=== PATIENT | female | born 1990 | race American Indian/Alaskan Native ===

== ENCOUNTER 2017-03-12 19:41 | Outpatient (CLI) | payer MEDICAID, OTHER ==
[2017-03-12] MEDS ORDERED: LACTATED RINGERS 1,000 ML IV ONE (19:47)
[2017-03-12 20:00] VITALS: BP 108/70
[2017-03-12 20:20] LABS: Bacteria,Urine 1+ /HPF (Negative); Bilirubin,Urine NEG (Negative); Blood,Urine NEG (Negative); Ketones,Urine NEG (Negative); Leukocyte Esterase,Urine SM (Negative); Mucus,Urine 2+ /HPF; Nitrite,Urine NEG (Negative); Urobilinogen,Urine < 2.0 mg/dL (<2.0)
== END 2017-03-12 21:04 | disposition home or self-care (01) ==
LOC: TRG 19:41
PROVIDERS: ATTEND Obstetrics & Gynecology
DX: O42.92 Full-term premature rupture of membranes, unspecified as to length of time between rupture and onset of labor (principal); Z3A.22 22 weeks gestation of pregnancy
CPT/HCPCS: 81001

== ENCOUNTER 2017-06-26 14:16 | Outpatient (CLI) | payer MEDICAID, OTHER | END 2017-06-26 15:30 | disposition home or self-care (01) | LOC: TRG 14:16 | PROVIDERS: ATTEND Obstetrics & Gynecology | DX: O47.1 False labor at or after 37 completed weeks of gestation (principal); Z3A.37 37 weeks gestation of pregnancy | CPT/HCPCS: 59025 ==

== ENCOUNTER 2017-07-31 15:45 | Emergency (ER) | payer MEDICAID ==
[2017-07-31 19:12] LABS: Basophils # (Auto) 0.1 K/mm3 (0.0-0.1); Basophils % (Auto) 0.8 % (0.0-1.8); Eosinophils # (Auto) 0.3 K/mm3 (0.0-0.4); Eosinophils % (Auto) 3.6 % (0.0-4.3); Hematocrit 39.6 % (30.3-42.9); Lymphocytes # (Auto) 1.5 K/mm3 (1.2-5.4); Lymphocytes % (Auto) 18.4 % (13.4-35.0); Mean Corpuscular HGB Conc 33 % (30-34); Mean Corpuscular Volume 76 fl (79-97); Monocytes # (Auto) 0.6 K/mm3 (0.0-0.8); Monocytes % (Auto) 7.3 % (0.0-7.3); Platelet Count 315 K/mm3 (140-440); Red Blood Count 5.23 M/mm3 (3.65-5.03); Red Cell Distribution Width 16.9 % (13.2-15.2)
[2017-07-31 19:22] LABS: Mean Corpuscular Hemoglobin 25 pg (28-32)
[2017-07-31 19:23] LABS: BUN/Creatinine Ratio 17; Blood Urea Nitrogen 15 mg/dL (7-17); Calcium 8.2 mg/dL (8.4-10.2); Hemolysis Index 0
[2017-07-31 21:13] LABS: Bilirubin,Urine NEG (Negative); Blood,Urine LG (Negative); Color,Urine Yellow (Yellow); Mucus,Urine 1+ /HPF; Nitrite,Urine NEG (Negative)
[2017-07-31] MEDS ORDERED: MACROBID PO ONE (21:27)
--- NOTE | 2017-07-31 21:29 | Emergency Department Report ---
HPI - General Chief Complaint: High BP Time Seen by Provider: 07/31/17 20:40 - HPI HPI: This is a 26-year-old female presents to the emergency department with the complaint of some swollen ankles and/or legs and been going on for the past 8 or 9 days, just after she gave via vaginal delivery at [facility] 9 days ago. She had a venous Doppler done at [facility] about 1 week ago that was negative for any DVT. She also says that she developed this generalized headache today and earlier felt like she was going to pass out but did not. She has some mild shortness of breath but denies any cough, fever, chest pain, back pain, nausea, vomiting or diaphoresis. She's been taking some IV Profen and Tylenol 3 since the delivery. She saw her ELECTRIC MULE OPERATOR today, Dr. Arleth Solitario, and had a urinalysis done and was told to go to the emergency department at [facility] to rule out preeclampsia. However the patient did not want to "fight the traffic" and came here to be seen. She otherwise denies any past medical history. She denies any tobacco or illicit drug use or abuse. ED Past Medical Hx - Past Medical History Previous Medical History?: Yes Hx Hypertension: No Hx Diabetes: No Hx Deep Vein Thrombosis: No Hx Renal Disease: No Hx Sickle Cell Disease: No Hx Seizures: No Hx Asthma: No Hx HIV: No Additional medical history: Vaginal delivery 07-22-2017 - Surgical History Past Surgical History?: No - Social History Smoking Status: Never Smoker Substance Use Type: Prescribed - Medications Home Medications: Home Medications Medication Instructions Recorded Confirmed Last Taken Type Acetaminophen/Codeine [Tylenol 1 tab PO DAILY 07/31/17 07/31/17 2 Days Ago History /Codeine # 3 tab] ~07/29/17 Ibuprofen [Motrin] 800 mg PO Q8HR PRN 07/31/17 07/31/17 07/31/17 History Nitrofurantoin Monohyd/M-Cryst 100 mg PO BID #14 capsule 08/01/17 Unknown Rx [Macrobid 100 mg Capsule] ED Review of Systems ROS: Stated complaint: HTN GAVE 9 DAYS AGO Other details as noted in HPI Comment: All other systems reviewed and negative Constitutional: denies: chills, fever Eyes: denies: eye pain, eye discharge, vision change ENT: denies: ear pain, throat pain Respiratory: shortness of breath. denies: cough Cardiovascular: edema. denies: chest pain Gastrointestinal: denies: abdominal pain, nausea, diarrhea Genitourinary: denies: urgency, dysuria, discharge Musculoskeletal: denies: back pain, joint swelling, arthralgia Skin: denies: rash, lesions Neurological: headache. denies: numbness, paresthesias Physical Exam - Physical Exam Vital Signs: Vital Signs 07/31/17 07/31/17 07/31/17 15:51 20:20 20:25 Temperature 98.8 F 98.8 F Pulse Rate 73 72 Respiratory 18 14 18 Rate Blood Pressure 121/80 Blood Pressure 152/88 [Right] O2 Sat by Pulse 98 100 100 Oximetry Physical Exam: GENERAL: The patient is well-developed well-nourished. HENT: Normocephalic. Atraumatic. Patient has moist mucous membranes. EYES: Extraocular motions are intact. Pupils equal reactive to light bilaterally. No nystagmus. NECK: Supple. Trachea is midline. CHEST/LUNGS: Clear to auscultation. There is no respiratory distress noted. HEART/CARDIOVASCULAR: Regular. There is no tachycardia. There is no murmur. ABDOMEN: Abdomen is soft, nontender. Patient has normal bowel sounds. There is no abdominal distention. SKIN: Skin is warm and dry. There is some mild nonpitting swelling to the bilateral ankles. NEURO: The patient is awake, alert, and oriented. The patient is cooperative. The patient has no focal neurologic deficits. The patient has normal speech. Cranial nerves II through XII grossly intact. MUSCULOSKELETAL: There is no tenderness or deformity. There is no limitation range of motion. There is no evidence of acute injury. ED Course Vital Signs 07/31/17 07/31/17 07/31/17 15:51 20:20 20:25 Temperature 98.8 F 98.8 F Pulse Rate 73 72 Respiratory 18 14 18 Rate Blood Pressure 121/80 Blood Pressure 152/88 [Right] O2 Sat by Pulse 98 100 100 Oximetry - Consultations Consultation #1: I spoke to the patient's ELECTRIC MULE OPERATOR, Dr. Arleth Solitario, who listened to the patient's presentation here and ED course this far including labs and imaging and has agreed to follow up with the patient in her office and agrees that she sound safe for discharge home as it sounds less likely she is having preeclampsia at this moment. 08/01/17 02:40 ED Medical Decision Making - Lab Data Result diagrams: 07/31/17 18:39 07/31/17 18:39 - EKG Data -: EKG Interpreted by Me EKG shows normal: sinus rhythm, axis, intervals, QRS complexes, ST-T waves Rate: normal - EKG Data When compared to previous EKG there are: previous EKG unavailable Interpretation: normal EKG - Radiology Data Radiology results: report reviewed, image reviewed interpreted by me: Chest x-ray does not show any acute process. There are no pleural effusions, obvious pneumonia and there is no pneumothorax. EXAM: NM LUNG SCAN PERF/VENT HISTORY: SOB, elevated dimer COMPARISON: None available. TECHNIQUE: 15 millicurie xenon 133 given for the ventilation portion of the exam. 5 millicuries technetium 99 m MAA given for the for fusion portion of the exam. FINDINGS: Relatively homogeneous uptake of tracer in both the ventilation and perfusion portions of the exam. No mismatched defect. IMPRESSION: Very low probability exam for pulmonary embolus. Transcribed By: LMA Dictated By: NELSON MCKENNA MD Electronically Authenticated By: NELSON MCKENNA MD Signed Date/Time: 07/31/172152 PROCEDURE: CT HEAD/BRAIN WO CON TECHNIQUE: Computerized tomography of the head was performed without contrast material. HISTORY: Headache, COMPARISON: No prior studies are available for comparison. FINDINGS: Skull and scalp: Normal. Paranasal sinuses: Normal. Ventricles and subarachnoid spaces: Normal. Cerebrum: No evidence of hemorrhage, acute infarction or mass . Cerebellum and brainstem: No evidence of hemorrhage, acute infarction or mass. Vasculature: Normal. Comments: None. IMPRESSION: Normal Examination Transcribed By: [facility] Dictated By: SHARON BRANTLEY Electronically Authenticated By: SHARON BRANTLEY Signed Date/Time: 07/31/17 1819 - Medical Decision Making This patient presents to the emergency department with a complaint of a headache , some dizziness and/or near syncope, some elevated blood pressure issues and swelling around the ankles, all about 9 days status post vaginal delivery. The patient does not appear to have any focal, motor or sensory deficits in her cranial nerves are intact. CT of the head did not show any bleed, shift, mass or any acute process. The patient's blood pressure was about 120/80 when she first arrived and then goes up to about 146/90 and then back down. She was given some Toradol and a Percocet for her headache with some improvement. EKG is normal without ST elevation ME, ischemia or dysrhythmia. Labs are mostly unremarkable including negative troponins 2. Patient does have a mild UTI. She also has a very elevated d-dimer but she had a VQ scan done that shows very low probability for pulmonary embolism. She was reevaluated multiple times over multiple hours and is feeling better. I spoke to her ELECTRIC MULE OPERATOR who felt that based on her vitals, labs and workup thus far, that she appears safe for discharge home and does not need to be started on any blood pressure medication at this moment. The patient will try lifestyle and/or dietary changes first including cutting out the caffeinated drinks and decreasing her salt intake and has been encouraged to keep a blood pressure log. She will return to the emergency Department with any worsening of her symptoms or any acute distress. Otherwise she has been encouraged to follow up with her ELECTRIC MULE OPERATOR in the next few days. She understands and agrees to the plan. - Differential Diagnosis essential hypertension, preeclampsia, dysrhythmia, PE, ME Critical Care Time: No Critical care attestation.: If time is entered above; I have spent that time in minutes in the direct care of this critically ill patient, excluding procedure time. ED Disposition Clinical Impression: Near syncope, Swollen ankles, Elevated blood pressure reading UTI (urinary tract infection) Qualifiers: Urinary tract infection type: acute cystitis Hematuria presence: with hematuria Qualified Code(s): N30.01 - Acute cystitis with hematuria Disposition: - TO HOME OR SELFCARE Is pt being admited?: No Condition: Stable Instructions: Urinary Tract Infection in Women (ED), Leg Edema (ED), Near Syncope (ED) Additional Instructions: Please follow-up with your ELECTRIC MULE OPERATOR in the next few days. Go to the closest emergency department with any worsening of your symptoms or any acute distress. Try and stay away from caffeinated products and foods that are high in salt to try and help with your blood pressure. Keep a blood pressure log. Prescriptions: Nitrofurantoin Monohyd/M-Cryst [Macrobid 100 mg Capsule] 100 mg PO BID #14 capsule Time of Disposition: 02:34
--- NOTE | 2017-07-31 22:22 | Cat Scan Report ---
FINAL REPORT PROCEDURE: CT HEAD/BRAIN WO CON TECHNIQUE: Computerized tomography of the head was performed without contrast material. HISTORY: Headache, COMPARISON: No prior studies are available for comparison. FINDINGS: Skull and scalp: Normal. Paranasal sinuses: Normal. Ventricles and subarachnoid spaces: Normal. Cerebrum: No evidence of hemorrhage, acute infarction or mass . Cerebellum and brainstem: No evidence of hemorrhage, acute infarction or mass. Vasculature: Normal. Comments: None. IMPRESSION: Normal Examination
[2017-07-31] MEDS ORDERED: PERCOCET 5/325 PO ONE (22:49)
[2017-08-01] MEDS ORDERED: TORADOL IV ONE (01:30)
[2017-08-01] MEDS ORDERED: NORCO 5/325 PO ONE (01:30)
--- NOTE | 2017-08-01 01:56 | Nuclear Medicine Report ---
FINAL REPORT EXAM: NM LUNG SCAN PERF/VENT HISTORY: SOB, elevated dimer COMPARISON: None available. TECHNIQUE: 15 millicurie xenon 133 given for the ventilation portion of the exam. 5 millicuries technetium 99 m MAA given for the for fusion portion of the exam. FINDINGS: Relatively homogeneous uptake of tracer in both the ventilation and perfusion portions of the exam. No mismatched defect. IMPRESSION: Very low probability exam for pulmonary embolus.
[2017-08-01 03:27] VITALS: BP 131/94
--- NOTE | 2017-08-01 07:51 | XRay Report ---
FINAL REPORT EXAM: XR CHEST ROUTINE 2V HISTORY: sob TECHNIQUE: PA and lateral chest radiographs PRIORS: None. FINDINGS: No mediastinal shift. Cardiac silhouette is not enlarged. No pneumothorax or effusion. Ill-defined left lower lung opacity. No acute skeletal finding. IMPRESSION: Ill-defined left lower lung opacity. PA and lateral chest radiographic follow-up to resolution is recommended.
== END 2017-08-01 03:38 | disposition home or self-care (01) ==
LOC: ED 15:45
DX: R55 Syncope and collapse (principal); N30.01 Acute cystitis with hematuria; R60.0 Localized edema
CPT/HCPCS: 36415; 70450; 71046; 78582; 80048; 81001; 84484; 85025; 85379; 93005; 93010; 96374; 99284; A9540; A9558; J1885

== ENCOUNTER 2018-10-04 15:54 | Emergency (ER) | payer MEDICAID, OTHER ==
--- NOTE | 2018-10-04 16:26 | Emergency Department Report ---
Blank Doc - Documentation Documentation: This is a 27-year-old female that presents wiht URI symptoms. This initial assessment/diagnostic orders/clinical plan/treatment(s) is/are subject to change based on patient's health status, clinical progression and re- assessment by fellow clinical providers in the ED. Further treatment and workup at subsequent clinical providers discretion. Patient/guardians urged not to elope from the ED as their condition may be serious if not clinically assessed and managed. Initial orders include: 1- Patient sent to [facility] for further evaluation and treatment 2- CXR
[2018-10-04 16:29] VITALS: BP 133/87
--- NOTE | 2018-10-04 17:54 | XRay Report ---
PROCEDURE: XR CHEST ROUTINE 2V TECHNIQUE: Chest 2 views HISTORY: cough COMPARISONS: FINDINGS: Cardiac and mediastinal contours are unremarkable. No focal pulmonary infiltrate identified. No pleur al fluid collection seen. Pulmonary vasculature is unremarkable. IMPRESSION: Negative two-view chest. This document is electronically signed by Av Hernandez MD., October 04 2018 05:52:49 PM ET
[2018-10-04] MEDS ORDERED: DELTASONE PO ONE (19:53)
[2018-10-04] MEDS ORDERED: PROVENTIL IH ONE (19:53)
[2018-10-04] MEDS ORDERED: IBUPROFEN PO ONE (19:53)
--- NOTE | 2018-10-04 21:17 | Emergency Department Report ---
Upper Respiratory HPI - HPI Chief Complaint: Chest Pain Stated Complaint: CHEST PAIN/WHEEZING/RUNNY NOSE Time Seen by Provider: 10/04/18 16:26 Duration: 5 Days URI Symptoms: Rhinorrhea: Yes, Sore Throat: Yes, Ear Pain: Yes, Cough: Yes, Shortness of Breath: Yes, Sick Contacts: Yes, Unable to Take Fluids: No, Urine Output Abnormal: No, Listless Behavior: No - Home Meds and Allergies Home Medications: Home Medications Medication Instructions Recorded Confirmed Last Taken Acetaminophen/Codeine [Tylenol 1 tab PO DAILY 07/31/17 07/31/17 2 Days Ago /Codeine # 3 tab] ~07/29/17 Ibuprofen [Motrin] 800 mg PO Q8HR PRN 07/31/17 07/31/17 07/31/17 Previous Rx's Medication Instructions Recorded Last Taken Type Nitrofurantoin Monohyd/M-Cryst 100 mg PO BID #14 capsule 08/01/17 Unknown Rx [Macrobid 100 mg Capsule] ALBUTEROL Inhaler(NF) [VENTOLIN 2 puff IH Q4H PRN #1 inha 10/04/18 Unknown Rx Inhaler(NF)] Azithromycin [Zithromax Z-HETAL] 250 mg PO DAILY #6 tab 10/04/18 Unknown Rx Benzonatate [Tessalon Perle] 100 mg PO TID PRN #30 capsule 10/04/18 Unknown Rx Ibuprofen 800 mg PO TID PRN #30 tablet 10/04/18 Unknown Rx predniSONE [Deltasone] 40 mg PO QDAY 5 Days #10 tab 10/04/18 Unknown Rx Allergies/Adverse Reactions: Allergies Allergy/AdvReac Type Severity Reaction Status Date / Time No Known Allergies Allergy Verified 10/04/18 16:27 ED Review of Systems ROS: Stated complaint: CHEST PAIN/WHEEZING/RUNNY NOSE Other details as noted in HPI Constitutional: chills, fever Eyes: denies: eye pain, eye discharge, vision change ENT: ear pain, throat pain, congestion Respiratory: cough, shortness of breath, wheezing Cardiovascular: denies: chest pain (right lateral chest wall pain with cough only ), palpitations Endocrine: no symptoms reported Gastrointestinal: denies: abdominal pain, nausea, diarrhea Genitourinary: denies: urgency, dysuria, discharge Musculoskeletal: denies: back pain, joint swelling, arthralgia Skin: denies: rash, lesions Neurological: denies: headache, weakness, paresthesias Psychiatric: denies: anxiety, depression Hematological/Lymphatic: denies: easy bleeding, easy bruising ED Past Medical Hx - Past Medical History Hx Hypertension: No Hx Diabetes: No Hx Deep Vein Thrombosis: No Hx Renal Disease: No Hx Sickle Cell Disease: No Hx Seizures: No Hx Asthma: No Hx HIV: No Additional medical history: Vaginal delivery 07-22-2017 - Social History Smoking Status: Never Smoker Substance Use Type: Alcohol, Marijuana - Medications Home Medications: Home Medications Medication Instructions Recorded Confirmed Last Taken Type Acetaminophen/Codeine [Tylenol 1 tab PO DAILY 07/31/17 07/31/17 2 Days Ago History /Codeine # 3 tab] ~07/29/17 Ibuprofen [Motrin] 800 mg PO Q8HR PRN 07/31/17 07/31/17 07/31/17 History Nitrofurantoin Monohyd/M-Cryst 100 mg PO BID #14 capsule 08/01/17 Unknown Rx [Macrobid 100 mg Capsule] ALBUTEROL Inhaler(NF) [VENTOLIN 2 puff IH Q4H PRN #1 inha 10/04/18 Unknown Rx Inhaler(NF)] Azithromycin [Zithromax Z-HETAL] 250 mg PO DAILY #6 tab 10/04/18 Unknown Rx Benzonatate [Tessalon Perle] 100 mg PO TID PRN #30 capsule 10/04/18 Unknown Rx Ibuprofen 800 mg PO TID PRN #30 tablet 10/04/18 Unknown Rx predniSONE [Deltasone] 40 mg PO QDAY 5 Days #10 tab 10/04/18 Unknown Rx ED Bronchiolitis Physical Exam - Exam General: Vital signs noted. No distress. Alert and acting appropriately. HEENT: Yes Pharyngeal Erythema, Yes Rhinorrhea, No Conjuctival Injection, No Dry Mucous Membranes Ear: Neither TM Bulge, Neither TM Erythema, Neither EAC Discharge Neck: No Adenopathy, No Rigidity Lungs: Yes Good Air Exchange, Yes Wheezes, Yes Cough, No Clear Lung Sounds, No Stridor, No Nasal Flaring, No Retractions, No Use of Accessory Muscles Heart: Yes Regular, No Murmur Abdomen: Yes Normal Bowel Sounds, No Tenderness, No Peritoneal Signs Skin: No Rash, No Eczema Neurologic: Alert and oriented, no deficits. Musculoskeletal: Unremarkable. ED Bronchiolitis Tests - Testing Testing: CXR: Normal/Negative, Rapid Strep: Abnormal/Positive Treatments - Treaments Treatment: Improved Albuterol (prednisone ibuprofen.) ED Physical Exam - General Limitations: No Limitations General appearance: alert, in no apparent distress - Head Head exam: Present: atraumatic, normocephalic - Eye Eye exam: Present: normal appearance, PERRL, EOMI Pupils: Present: normal accommodation - ENT ENT exam: Present: normal orophraynx, mucous membranes moist. Absent: TM's normal bilaterally, normal external ear exam - Neck Neck exam: Present: normal inspection, full ROM. Absent: tenderness, meningismus, lymphadenopathy, thyromegaly - Expanded Neck Exam Expanded Neck exam: Absent: tenderness - Respiratory Respiratory exam: Present: normal lung sounds bilaterally, chest wall tenderness (right lateral chest wall pain with cough no step off no crepitus ). Absent: respiratory distress, wheezes, stridor - Cardiovascular Cardiovascular Exam: Present: regular rate, normal rhythm, normal heart sounds. Absent: systolic murmur, diastolic murmur, rubs, gallop - GI/Abdominal GI/Abdominal exam: Present: soft, normal bowel sounds. Absent: distended, tenderness, bruit, hernia - Rectal Rectal exam: Present: deferred - Extremities Exam Extremities exam: Present: normal inspection, full ROM, normal capillary refill - Back Exam Back exam: Present: normal inspection, full ROM. Absent: tenderness, CVA tenderness (R), CVA tenderness (L), muscle spasm, rash noted - Neurological Exam Neurological exam: Present: alert, oriented X3, CN II-XII intact, normal gait - Psychiatric Psychiatric exam: Present: normal affect, normal mood - Skin Skin exam: Present: warm, dry, intact, normal color. Absent: rash ED Course Vital Signs 10/04/18 16:27 Temperature 98.1 F Pulse Rate 87 Respiratory 18 Rate Blood Pressure 133/87 O2 Sat by Pulse 98 Oximetry ED Medical Decision Making - Radiology Data Radiology results: report reviewed, image reviewed Patient: BERNABE WEINSTEIN MR#: [id number] : 1990 Acct:[id number] Age/Sex: 27 / F ADM Date: 10/04/18 Loc: ED Attending Dr: Ordering Physician: TAYLOR SALMON NP Date of Service: 10/04/18 Procedure(s): XR chest routine 2V Accession Number(s): [id number] cc: TAYLOR SALMON NP Fluoro Time In Minutes: PROCEDURE: XR CHEST ROUTINE 2V TECHNIQUE: Chest 2 views HISTORY: cough COMPARISONS: FINDINGS: Cardiac and mediastinal contours are unremarkable. No focal pulmonary infiltrate identified. No pleural fluid collection seen. Pulmonary vasculature is unremarkable. IMPRESSION: Negative two-view chest. This document is electronically signed by Av Middleton MD., October 04 2018 05:52:49 PM ET Transcribed By: JESSICA Dictated By: ROBER MIDDLETON MD Electronically Authenticated By: ROBER MIDDLETON MD Signed Date/Time: 10/04/181753 DD/ 28 TD/TT: 10/04/181728 - Medical Decision Making Symptoms are much improved with medications given in the emergency plan will DC home with prescription for albuterol inhaler prednisone ZPack ibuprofen and Tessalon Perles patient will follow with PCP patient will return to emergency department should symptoms worsen patient is currently alert and oriented ambulatory in ed without increased sob. Critical care attestation.: If time is entered above; I have spent that time in minutes in the direct care of this critically ill patient, excluding procedure time. ED Disposition Clinical Impression: Bronchitis Disposition: DC-01 TO HOME OR SELFCARE Is pt being admited?: No Does the pt Need Aspirin: No Condition: Stable Instructions: Acute Bronchitis (ED), Upper Respiratory Infection (ED) Prescriptions: predniSONE [Deltasone] 40 mg PO QDAY 5 Days #10 tab Ibuprofen 800 mg PO TID PRN #30 tablet PRN Reason: pain fever Benzonatate [Tessalon Perle] 100 mg PO TID PRN #30 capsule PRN Reason: Cough ALBUTEROL Inhaler(NF) [VENTOLIN Inhaler(NF)] 2 puff IH Q4H PRN #1 inha PRN Reason: shortness of breath wheezing Azithromycin [Zithromax Z-HETAL] 250 mg PO DAILY #6 tab Referrals: [facility] [Outside] - 3-5 Days Forms: Work/School Release Form(ED) Time of Disposition: 21:25
== END 2018-10-04 21:30 | disposition home or self-care (01) ==
LOC: ED 15:54
DX: J40 Bronchitis, not specified as acute or chronic (principal); F12.10 Cannabis abuse, uncomplicated
CPT/HCPCS: 71046; 99283; J7512; 94640

== ENCOUNTER 2018-12-05 12:30 | Emergency (ER) | payer SELFPAY ==
[2018-12-05 12:39] VITALS: BP 140/95
[2018-12-05] MEDS ORDERED: DUONEB *Not for PRN Use IH ONE (12:39)
[2018-12-05] MEDS ORDERED: DELTASONE PO STA (12:39)
--- NOTE | 2018-12-05 12:47 | Emergency Department Report ---
- General Chief Complaint: Upper Respiratory Infection Stated Complaint: CONGESTED Time Seen by Provider: 12/05/18 12:39 Source: patient Mode of arrival: Ambulatory Limitations: No Limitations - History of Present Illness Initial Comments: 27 Y/O FEMALE SMOKER WITH PMH OF BRONCHITIS RPESENTS TO ED C/O OF 2 DAY HISTORY OF COUGH AND CONGESTION. SCANT MUCUS. NO HEMOPTYSIS. NO PALPITATIONS NO DIZZINESS MD Complaint: cough, rhinorrhea, nasal congestion, other -: Gradual Quality: burning, dull Consistency: constant Improves With: nothing Associated Symptoms: chills, rhinorrhea, nasal congestion, cough. denies: diaphoresis, headache, abdominal pain, vomiting, diarrhea, dysuria, right sweats, ear pain - Related Data Home Medications Medication Instructions Recorded Confirmed Last Taken Acetaminophen/Codeine [Tylenol 1 tab PO DAILY 07/31/17 07/31/17 2 Days Ago /Codeine # 3 tab] ~07/29/17 Ibuprofen [Motrin] 800 mg PO Q8HR PRN 07/31/17 07/31/17 07/31/17 Previous Rx's Medication Instructions Recorded Last Taken Type Nitrofurantoin Monohyd/M-Cryst 100 mg PO BID #14 capsule 08/01/17 Unknown Rx [Macrobid 100 mg Capsule] ALBUTEROL Inhaler(NF) [VENTOLIN 2 puff IH Q4H PRN #1 inha 10/04/18 Unknown Rx Inhaler(NF)] Azithromycin [Zithromax Z-HETAL] 250 mg PO DAILY #6 tab 10/04/18 Unknown Rx Benzonatate [Tessalon Perle] 100 mg PO TID PRN #30 capsule 10/04/18 Unknown Rx Ibuprofen [Ibuprofen 800] 800 mg PO TID PRN #30 tablet 10/04/18 Unknown Rx predniSONE [Deltasone] 40 mg PO QDAY 5 Days #10 tab 10/04/18 Unknown Rx Azithromycin [Zithromax] 500 mg PO QDAY #3 tablet 12/05/18 Unknown Rx Montelukast [Singulair] 10 mg PO QPM #14 tablet 12/05/18 Unknown Rx predniSONE [Deltasone] 50 mg PO QDAY #5 tab 12/05/18 Unknown Rx Allergies Allergy/AdvReac Type Severity Reaction Status Date / Time No Known Allergies Allergy Verified 12/05/18 12:34 ED Review of Systems ROS: Stated complaint: CONGESTED Other details as noted in HPI Constitutional: denies: chills, fever Eyes: denies: eye pain, eye discharge, vision change ENT: denies: ear pain, throat pain Respiratory: cough. denies: shortness of breath, wheezing Cardiovascular: denies: chest pain, palpitations Endocrine: no symptoms reported Gastrointestinal: denies: abdominal pain, nausea, diarrhea Genitourinary: denies: urgency, dysuria, discharge Musculoskeletal: denies: back pain, joint swelling, arthralgia Skin: denies: rash, lesions Neurological: denies: headache, weakness, paresthesias Psychiatric: denies: anxiety, depression Hematological/Lymphatic: denies: easy bleeding, easy bruising ED Past Medical Hx - Past Medical History Previous Medical History?: No Hx Hypertension: No Hx Diabetes: No Hx Deep Vein Thrombosis: No Hx Renal Disease: No Hx Sickle Cell Disease: No Hx Seizures: No Hx Asthma: No Hx HIV: No Additional medical history: Vaginal delivery 07-22-2017 - Surgical History Past Surgical History?: No - Social History Smoking Status: Former Smoker Substance Use Type: None - Medications Home Medications: Home Medications Medication Instructions Recorded Confirmed Last Taken Type Acetaminophen/Codeine [Tylenol 1 tab PO DAILY 07/31/17 07/31/17 2 Days Ago History /Codeine # 3 tab] ~07/29/17 Ibuprofen [Motrin] 800 mg PO Q8HR PRN 07/31/17 07/31/17 07/31/17 History Nitrofurantoin Monohyd/M-Cryst 100 mg PO BID #14 capsule 08/01/17 Unknown Rx [Macrobid 100 mg Capsule] ALBUTEROL Inhaler(NF) [VENTOLIN 2 puff IH Q4H PRN #1 inha 10/04/18 Unknown Rx Inhaler(NF)] Azithromycin [Zithromax Z-HETAL] 250 mg PO DAILY #6 tab 10/04/18 Unknown Rx Benzonatate [Tessalon Perle] 100 mg PO TID PRN #30 capsule 10/04/18 Unknown Rx Ibuprofen [Ibuprofen 800] 800 mg PO TID PRN #30 tablet 10/04/18 Unknown Rx predniSONE [Deltasone] 40 mg PO QDAY 5 Days #10 tab 10/04/18 Unknown Rx Azithromycin [Zithromax] 500 mg PO QDAY #3 tablet 12/05/18 Unknown Rx Montelukast [Singulair] 10 mg PO QPM #14 tablet 12/05/18 Unknown Rx predniSONE [Deltasone] 50 mg PO QDAY #5 tab 12/05/18 Unknown Rx ED Physical Exam - General Limitations: No Limitations General appearance: alert, in no apparent distress - Head Head exam: Present: atraumatic, normocephalic - Eye Eye exam: Present: normal appearance - ENT ENT exam: Present: mucous membranes moist - Neck Neck exam: Present: normal inspection - Respiratory Respiratory exam: Present: normal lung sounds bilaterally, wheezes, rhonchi, other (spo2 97%). Absent: respiratory distress - Cardiovascular Cardiovascular Exam: Present: regular rate, normal rhythm. Absent: systolic murmur, diastolic murmur, rubs, gallop - GI/Abdominal GI/Abdominal exam: Present: soft, normal bowel sounds. Absent: tenderness, guarding - Extremities Exam Extremities exam: Present: normal inspection - Back Exam Back exam: Present: normal inspection - Neurological Exam Neurological exam: Present: alert, oriented X3 - Psychiatric Psychiatric exam: Present: normal affect, normal mood - Skin Skin exam: Present: warm, dry, intact, normal color. Absent: rash ED Course Vital Signs 12/05/18 12:36 Temperature 98 F Pulse Rate 94 H Respiratory 16 Rate Blood Pressure 140/95 [Left] O2 Sat by Pulse 94 Oximetry Critical care attestation.: If time is entered above; I have spent that time in minutes in the direct care of this critically ill patient, excluding procedure time. ED Disposition Clinical Impression: Cough, Bronchitis Disposition: DC-01 TO HOME OR SELFCARE Is pt being admited?: No Does the pt Need Aspirin: No Condition: Stable Instructions: Chronic Bronchitis (ED) Referrals: [facility] [Provider Group] - 3-5 Days
== END 2018-12-05 13:07 | disposition home or self-care (01) ==
LOC: ED 12:30
DX: J40 Bronchitis, not specified as acute or chronic (principal)
CPT/HCPCS: 94640; 99282

== ENCOUNTER 2019-06-13 17:18 | Emergency (ER) | payer SELFPAY ==
--- NOTE | 2019-06-13 17:28 | Event Note ---
ED Screening Note Date of service: 06/13/19 Time: 17:25 ED Screening Note: 28 y/o female comes in for n/v cough chest discomfort with cough. No fever. Times 3 days. Took theraflu, benadryl, prednisone. This initial assessment/diagnostic orders/clinical plan/treatment(s) is/are subject to change based on patients health status, clinical progression and re- assessment by fellow clinical providers in the ED. Further treatment and workup at subsequent clinical providers discretion. Patient/guardian urged not to elope from the ED as their condition may be serious if not clinically assessed and managed. Initial orders include:
--- NOTE | 2019-06-13 17:55 | XRay Report ---
CHEST PA AND LATERAL VIEWS INDICATION: sob,chest discomfort and tachy. COMPARISON: 10/04/2018. FINDINGS: Support devices: None. Heart: Within normal limits. Lungs/Pleura: No acute pulmonary or pleural findings. IMPRESSION: 1. No significant abnormality. Signer Name: Aung Mack MD Signed: 06/13/2019 5:50 PM Workstation Name: [id number]
[2019-06-13 18:13] LABS: Hematocrit 43.9 % (30.3-42.9); Hemoglobin 14.7 gm/dl (10.1-14.3); Mean Corpuscular HGB Conc 34 % (30-34); Mean Corpuscular Volume 76 fl (79-97); Platelet Count 310 K/mm3 (140-440); Red Blood Count 5.77 M/mm3 (3.65-5.03); Red Cell Distribution Width 15.4 % (13.2-15.2)
[2019-06-13 18:33] LABS: BUN/Creatinine Ratio 20; Blood Urea Nitrogen 14 mg/dL (7-17); Calcium 9.5 mg/dL (8.4-10.2); Hemolysis Index 19
[2019-06-13] MEDS ORDERED: ONDANSETRON 4 MG/2 ML INJ IV ONE (18:36)
[2019-06-13] MEDS ORDERED: ASPIRIN 325 MG TAB PO ONE (18:36)
[2019-06-13] MEDS ORDERED: FAMOTIDINE 20 MG/2 ML INJ IV ONE (18:36)
[2019-06-13] MEDS ORDERED: SODIUM CHLORIDE 0.9% 1000 ML 1,000 ML IV ONE (18:36)
[2019-06-13 18:58] LABS: Basophils % (Manual) 0 % (0.0-1.8); Eosinophils % (Manual) 0 % (0.0-4.3); Total Cells Counted 100
[2019-06-13 18:59] LABS: Anisocytosis 1+
[2019-06-13] MEDS ORDERED: LORazepam 1 MG TAB PO ONE (19:26)
[2019-06-13 19:28] LABS: Alanine Aminotransferase 13 units/L (7-56); Albumin 4.2 g/dL (3.9-5); BUN/Creatinine Ratio 23; Blood Urea Nitrogen 14 mg/dL (7-17); Calcium 8.8 mg/dL (8.4-10.2); Hemolysis Index 0
--- NOTE | 2019-06-13 22:03 | Emergency Department Report ---
- General Chief Complaint: Upper Respiratory Infection Stated Complaint: SORE THROAT Time Seen by Provider: 06/13/19 17:24 Source: patient Mode of arrival: Ambulatory Limitations: No Limitations - History of Present Illness Initial Comments: Patient is a 28-year-old -[place] female with a history of chronic bronchitis and anxiety who presented to the ED with complaint of acute onset persistent nasal and sinus congestion, frontal sinus pressure and headache, diffuse body aches and pain, cough with pleuritic chest wall pain for the last 2 days. Patient denies fever, chills, dizziness, syncope, shortness of breath, change in vision, abdominal pain, nausea, vomiting, diarrhea, dysuria, urinary frequency and urgency, sore throat or change in vision. MD Complaint: cough, sore throat, rhinorrhea, nasal congestion, sinus pain -: Sudden, days(s) (2) Severity scale (0 -10): 7 Quality: sharp, aching Consistency: constant Improves With: nothing Worsens With: nothing Context: sick contacts Associated Symptoms: denies other symptoms, fever, chills, myalgias, headache, rhinorrhea, nasal congestion, cough. denies: diaphoresis, stiff neck, chest pain, shortness of breath, abdominal pain, nausea, vomiting, diarrhea, dysuria, rash, right sweats, weight loss, epistaxis, ear pain - Related Data Home Medications Medication Instructions Recorded Confirmed Last Taken Acetaminophen/Codeine [Tylenol 1 tab PO DAILY 07/31/17 07/31/17 2 Days Ago /Codeine # 3 tab] ~07/29/17 Ibuprofen [Motrin] 800 mg PO Q8HR PRN 07/31/17 07/31/17 07/31/17 Previous Rx's Medication Instructions Recorded Last Taken Type Nitrofurantoin Monohyd/M-Cryst 100 mg PO BID #14 capsule 08/01/17 Unknown Rx [Macrobid 100 mg Capsule] ALBUTEROL Inhaler(NF) [VENTOLIN 2 puff IH Q4H PRN #1 inha 10/04/18 Unknown Rx Inhaler(NF)] Azithromycin [Zithromax Z-HETAL] 250 mg PO DAILY #6 tab 10/04/18 Unknown Rx Benzonatate [Tessalon Perle] 100 mg PO TID PRN #30 capsule 10/04/18 Unknown Rx Ibuprofen [Ibuprofen 800] 800 mg PO TID PRN #30 tablet 10/04/18 Unknown Rx predniSONE [Deltasone] 40 mg PO QDAY 5 Days #10 tab 10/04/18 Unknown Rx Azithromycin [Zithromax] 500 mg PO QDAY #3 tablet 12/05/18 Unknown Rx Montelukast [Singulair] 10 mg PO QPM #14 tablet 12/05/18 Unknown Rx predniSONE [Deltasone] 50 mg PO QDAY #5 tab 12/05/18 Unknown Rx Benzonatate [Tessalon Perles] 100 mg PO Q8HR #30 capsule 06/13/19 Unknown Rx DOXYCYCLINE Hyclate [Vibramycin 100 mg PO Q12HR #20 capsule 06/13/19 Unknown Rx CAP] Ibuprofen [Motrin] 600 mg PO Q8H PRN #20 tablet 06/13/19 Unknown Rx methylPREDNISolone [Medrol 4MG 4 mg PO DAILY #21 tab.ds.pk 06/13/19 Unknown Rx DOSEPAK (21 tabs)] Allergies Allergy/AdvReac Type Severity Reaction Status Date / Time No Known Allergies Allergy Verified 06/13/19 17:18 ED Review of Systems ROS: Stated complaint: SORE THROAT Other details as noted in HPI Constitutional: denies: chills, fever Eyes: denies: eye pain, eye discharge, vision change ENT: congestion. denies: ear pain, throat pain Respiratory: cough. denies: shortness of breath, wheezing Cardiovascular: denies: chest pain, palpitations Endocrine: no symptoms reported. denies: excessive sweating, flushing Gastrointestinal: denies: abdominal pain, nausea, diarrhea Genitourinary: denies: urgency, dysuria, discharge Musculoskeletal: back pain, arthralgia, myalgia. denies: joint swelling Skin: denies: rash, lesions Neurological: headache. denies: weakness, paresthesias Psychiatric: denies: anxiety, depression Hematological/Lymphatic: denies: easy bleeding, easy bruising ED Past Medical Hx - Past Medical History Hx Hypertension: No Hx Diabetes: No Hx Deep Vein Thrombosis: No Hx Renal Disease: No Hx Sickle Cell Disease: No Hx Seizures: No Hx Asthma: No Hx HIV: No Additional medical history: Vaginal delivery 07-22-2017 - Surgical History Past Surgical History?: No - Social History Smoking Status: Current Every Day Smoker Substance Use Type: Marijuana - Medications Home Medications: Home Medications Medication Instructions Recorded Confirmed Last Taken Type Acetaminophen/Codeine [Tylenol 1 tab PO DAILY 07/31/17 07/31/17 2 Days Ago History /Codeine # 3 tab] ~07/29/17 Ibuprofen [Motrin] 800 mg PO Q8HR PRN 07/31/17 07/31/17 07/31/17 History Nitrofurantoin Monohyd/M-Cryst 100 mg PO BID #14 capsule 08/01/17 Unknown Rx [Macrobid 100 mg Capsule] ALBUTEROL Inhaler(NF) [VENTOLIN 2 puff IH Q4H PRN #1 inha 10/04/18 Unknown Rx Inhaler(NF)] Azithromycin [Zithromax Z-HETAL] 250 mg PO DAILY #6 tab 10/04/18 Unknown Rx Benzonatate [Tessalon Perle] 100 mg PO TID PRN #30 capsule 10/04/18 Unknown Rx Ibuprofen [Ibuprofen 800] 800 mg PO TID PRN #30 tablet 10/04/18 Unknown Rx predniSONE [Deltasone] 40 mg PO QDAY 5 Days #10 tab 10/04/18 Unknown Rx Azithromycin [Zithromax] 500 mg PO QDAY #3 tablet 12/05/18 Unknown Rx Montelukast [Singulair] 10 mg PO QPM #14 tablet 12/05/18 Unknown Rx predniSONE [Deltasone] 50 mg PO QDAY #5 tab 12/05/18 Unknown Rx Benzonatate [Tessalon Perles] 100 mg PO Q8HR #30 capsule 06/13/19 Unknown Rx DOXYCYCLINE Hyclate [Vibramycin 100 mg PO Q12HR #20 capsule 06/13/19 Unknown Rx CAP] Ibuprofen [Motrin] 600 mg PO Q8H PRN #20 tablet 06/13/19 Unknown Rx methylPREDNISolone [Medrol 4MG 4 mg PO DAILY #21 tab.ds.pk 06/13/19 Unknown Rx DOSEPAK (21 tabs)] ED Physical Exam - General Limitations: No Limitations General appearance: alert, in no apparent distress - Head Head exam: Present: atraumatic, normocephalic, normal inspection - Eye Eye exam: Present: normal appearance, PERRL, EOMI Pupils: Present: normal accommodation - ENT ENT exam: Present: normal exam, normal orophraynx, mucous membranes moist, TM's normal bilaterally, other (Grossly congested nasal passages) - Neck Neck exam: Present: normal inspection, full ROM - Respiratory Respiratory exam: Present: normal lung sounds bilaterally. Absent: respiratory distress, wheezes, rales, stridor, chest wall tenderness, accessory muscle use, decreased breath sounds, prolonged expiratory - Cardiovascular Cardiovascular Exam: Present: normal rhythm, tachycardia, normal heart sounds. Absent: systolic murmur, diastolic murmur, rubs, gallop - GI/Abdominal GI/Abdominal exam: Present: soft, normal bowel sounds. Absent: tenderness, guarding, hyperactive bowel sounds, hypoactive bowel sounds, organomegaly - Extremities Exam Extremities exam: Present: normal inspection, full ROM, normal capillary refill - Back Exam Back exam: Present: normal inspection, full ROM - Neurological Exam Neurological exam: Present: alert, oriented X3, CN II-XII intact, normal gait - Psychiatric Psychiatric exam: Present: normal affect, normal mood, anxious - Skin Skin exam: Present: warm, dry, intact, normal color. Absent: rash ED Course Vital Signs 06/13/19 06/13/19 06/13/19 17:24 18:35 22:05 Temperature 98.3 F 98.5 F Pulse Rate 136 H 106 H Respiratory 20 17 18 Rate Blood Pressure 135/87 Blood Pressure 110/67 [Right] O2 Sat by Pulse 97 96 Oximetry ED Medical Decision Making - Lab Data Result diagrams: 06/13/19 18:02 06/13/19 18:55 - EKG Data EKG shows normal: sinus rhythm Rate: tachycardia - EKG Data 06/13/19 22:59 EKG shows sinus tachycardia with ventricular rate of 114 beats per minute, no ST or T-wave abnormalities. - Radiology Data Radiology results: report reviewed, image reviewed Findings [address] [address] XRay Report Signed Patient: BERNABE WEINSTEIN MR#: [id number] : 1990 Acct:[id number] Age/Sex: 28 / F ADM Date: 06/13/19 Loc: ED Attending Dr: Ordering Physician: FIDEL GRAY Date of Service: 06/13/19 Procedure(s): XR chest routine 2V Accession Number(s): [id number] cc: [facility] M[facility] [place], [place] Fluoro Time In Minutes: CHEST PA AND LATERAL VIEWS INDICATION: sob,chest discomfort and tachy. COMPARISON: 10/04/2018. FINDINGS: Support devices: None. Heart: Within normal limits. Lungs/Pleura: No acute pulmonary or pleural findings. IMPRESSION: 1. No significant abnormality. Signer Name: Aung Mack MD Signed: 06/13/2019 5:50 PM Workstation Name: [id number] Transcribed By: SW Dictated By: Aung Mack MD Electronically Authenticated By: Aung Mack MD Signed Date/Time: 06/13/191749 DD/ 48 TD/TT: - Medical Decision Making This is a 28-year-old [place] female with a history of chronic bronchitis and anxiety who presented to the ED with nasal and sinus congestion, dry cough, diffuse body aches and pains, pleuritic chest pain for 2 days worse in the last 12 hours. In the ED, patient is alert and oriented 3 and is not in distress but extremely anxious. Physical exam, tachycardic in triage. EKG shows sinus tachycardia with a ventricular rate of 114 beats per minute and no ST or T-wave abnormalities. Lab test results were reviewed and are nonactionable including urinalysis. Chest x-ray shows no acute cardiopulmonary abnormalities or pneumonitis. Patient was treated in the ED with Pepcid, antiemetics Zofran, also received normal saline 1 L IV bolus and also received Ativan 0.5 mg by mouth 1. On reevaluation, patient's tachycardia improved significantly, patient felt betteron her body aches and pains also resolved. Patient was discharged home on medications and advised to follow-up with her primary care physician in 5-7 days for reevaluation or return to the ED immediately if symptoms get worse. - Differential Diagnosis Acute bronchitis; URI; Pneumonia; Flu; Anxiety Critical care attestation.: If time is entered above; I have spent that time in minutes in the direct care of this critically ill patient, excluding procedure time. ED Disposition Clinical Impression: Acute upper respiratory infection, Flu-like symptoms, Anxiety as acute reaction to exceptional stress Acute bronchitis Qualifiers: Bronchitis organism: unspecified organism Qualified Code(s): J20.9 - Acute bronchitis, unspecified Disposition: DC-01 TO HOME OR SELFCARE Is pt being admited?: No Does the pt Need Aspirin: No Condition: Stable Instructions: Upper Respiratory Infection (ED), Acute Bronchitis (ED) Additional Instructions: Take medication with food, drink plenty of fluids and follow-up with your primary care physician in 5-7 days for reevaluation. Return to the ED immediately if symptoms get worse. Prescriptions: methylPREDNISolone [Medrol 4MG DOSEPAK (21 tabs)] 4 mg PO DAILY #21 tab.ds.pk Ibuprofen [Motrin] 600 mg PO Q8H PRN #20 tablet PRN Reason: Pain Benzonatate [Tessalon Perles] 100 mg PO Q8HR #30 capsule DOXYCYCLINE Hyclate [Vibramycin CAP] 100 mg PO Q12HR #20 capsule Referrals: BRET EVERETT MD [Staff Physician] - 3-5 Days Forms: Work/School Release Form(ED) Time of Disposition: 22:53 Print Language: [place]
[2019-06-13 22:06] VITALS: BP 110/67
[2019-06-13 22:35] LABS: Bilirubin,Urine NEG (Negative); Blood,Urine NEG (Negative); Color,Urine Yellow (Yellow); Mucus,Urine 3+ /HPF
== END 2019-06-13 23:29 | disposition home or self-care (01) ==
LOC: ED 17:18
DX: J06.9 Acute upper respiratory infection, unspecified (principal); F41.9 Anxiety disorder, unspecified; J20.9 Acute bronchitis, unspecified; F17.200 Nicotine dependence, unspecified, uncomplicated; F12.10 Cannabis abuse, uncomplicated; Z79.899 Other long term (current) drug therapy
CPT/HCPCS: 36415; 71046; 80048; 80053; 81001; 83690; 84484; 84703; 85007; 85025; 85379; 93005; 93010; 96374; 96375; 99284; J2405; J7030

== ENCOUNTER 2019-12-14 22:59 | Emergency (ER) | payer SELFPAY ==
[2019-12-14] MEDS ORDERED: ALBUTEROL 2.5 MG/3 ML NEBU IH ONE ×2 (23:38→23:42)
[2019-12-14] MEDS ORDERED: IPRATROPIUM 0.02% NEBU 2.5 ML IH ONE (23:38)
[2019-12-14] MEDS ORDERED: methylPREDNISolone Sod Succinate 125 MG/2 ML INJ IV ONE (23:42)
[2019-12-14] MEDS ORDERED: methylPREDNISolone Sod Succinate 125 MG/2 ML INJ ONE (23:44)
--- NOTE | 2019-12-15 00:15 | XRay Report ---
CHEST 1 VIEW 12/14/2019 10:56 PM INDICATION / CLINICAL INFORMATION: dyspnea, asthma attack. COMPARISON: Chest x-ray 06/13/2019 FINDINGS: SUPPORT DEVICES: None. HEART / MEDIASTINUM: No significant abnormality. LUNGS / PLEURA: No significant pulmonary or pleural abnormality. No pneumothorax. ADDITIONAL FINDINGS: No significant additional findings. IMPRESSION: 1. No acute findings. Signer Name: Jefferson Hankins MD Signed: 12/15/2019 12:11 AM Workstation Name: [id number]
--- NOTE | 2019-12-15 01:29 | Emergency Department Report ---
ED Shortness of Breath HPI - General Chief Complaint: Adult Asthma Stated Complaint: ASTHMA Source: patient Mode of arrival: Ambulatory Limitations: No Limitations - History of Present Illness Initial Comments: Patient is a 28-year-old -Polish female with a history of asthma and bronchitis who presents to the ED with complaint of acute onset persistent shortness of breath, persistent dry cough, and wheezing for the last 2 hours. Patient states that the symptoms have been persistent intermittently for the last 3 days and that she has been using her albuterol inhaler and nebulizers at home. Patient states that the last time she used her nebulizer was about 8 hours ago. Patient states that she ran out of her albuterol inhaler prior to arrival in the ED. Patient denies chest pain, dizziness, syncope, fever, chills, nausea, vomiting, diarrhea, nasal and sinus congestion or sore throat and headache. MD Complaint: shortness of breath, cough, "asthma attack" -: Sudden, hour(s) (2) Radiation: other (none) Severity: moderate Pain Scale: 4 Quality: dull Consistency: intermittent Improves With: bronchodilators Worsens With: nothing Known History Of: asthma, other (bronchitis) Context: recent URI Associated Symptoms: cough Treatments Prior to Arrival: bronchodilator - Related Data Home Oxygen Therapy: No Home Medications Medication Instructions Recorded Confirmed Last Taken Acetaminophen/Codeine [Tylenol 1 tab PO DAILY 07/31/17 07/31/17 2 Days Ago /Codeine # 3 tab] ~07/29/17 Ibuprofen [Motrin] 800 mg PO Q8HR PRN 07/31/17 07/31/17 07/31/17 Previous Rx's Medication Instructions Recorded Last Taken Type Nitrofurantoin Monohyd/M-Cryst 100 mg PO BID #14 capsule 08/01/17 Unknown Rx [Macrobid 100 mg Capsule] ALBUTEROL Inhaler(NF) [VENTOLIN 2 puff IH Q4H PRN #1 inha 10/04/18 Unknown Rx Inhaler(NF)] Azithromycin [Zithromax Z-HETAL] 250 mg PO DAILY #6 tab 10/04/18 Unknown Rx Benzonatate [Tessalon Perle] 100 mg PO TID PRN #30 capsule 10/04/18 Unknown Rx Ibuprofen [Ibuprofen 800] 800 mg PO TID PRN #30 tablet 10/04/18 Unknown Rx predniSONE [Deltasone] 40 mg PO QDAY 5 Days #10 tab 10/04/18 Unknown Rx Azithromycin [Zithromax] 500 mg PO QDAY #3 tablet 12/05/18 Unknown Rx Montelukast [Singulair] 10 mg PO QPM #14 tablet 12/05/18 Unknown Rx predniSONE [Deltasone] 50 mg PO QDAY #5 tab 12/05/18 Unknown Rx DOXYCYCLINE Hyclate [Vibramycin 100 mg PO Q12HR #20 capsule 06/13/19 Unknown Rx CAP] Ibuprofen [Motrin] 600 mg PO Q8H PRN #20 tablet 06/13/19 Unknown Rx Ondansetron [Zofran Odt] 4 mg PO Q6HR PRN #20 tab.rapdis 06/13/19 Unknown Rx methylPREDNISolone [Medrol 4MG 4 mg PO DAILY #21 tab.ds.pk 06/13/19 Unknown Rx DOSEPAK (21 tabs)] ALBUTEROL NEB's [Proventil 0.083% 3 ml INHALATION Q6H PRN #75 ml 12/15/19 Unknown Rx NEBS] Albuterol Sulfate [Proventil Hfa] 1 - 2 puff IH Q6H PRN #1 hfa.aer.ad 12/15/19 Unknown Rx Benzonatate [Tessalon Perles] 100 mg PO Q8HR #30 capsule 12/15/19 Unknown Rx Prednisone [predniSONE 10 mg 10 mg PO .TAPER #21 tab.ds.pk 12/15/19 Unknown Rx (6-Day Pack, 21 Tabs)] Allergies Allergy/AdvReac Type Severity Reaction Status Date / Time No Known Allergies Allergy Verified 06/13/19 17:18 ED Review of Systems ROS: Stated complaint: ASTHMA Other details as noted in HPI Constitutional: denies: chills, fever Eyes: denies: eye pain, eye discharge, vision change ENT: denies: ear pain, throat pain Respiratory: cough, shortness of breath, wheezing Cardiovascular: denies: chest pain, palpitations Endocrine: no symptoms reported Gastrointestinal: denies: abdominal pain, nausea, diarrhea Genitourinary: denies: urgency, dysuria, discharge Musculoskeletal: denies: back pain, joint swelling, arthralgia Skin: denies: rash, lesions Neurological: denies: headache, weakness, paresthesias Psychiatric: denies: anxiety, depression Hematological/Lymphatic: denies: easy bleeding, easy bruising ED Past Medical Hx - Past Medical History Previous Medical History?: Yes Hx Hypertension: No Hx Diabetes: No Hx Deep Vein Thrombosis: No Hx Renal Disease: No Hx Sickle Cell Disease: No Hx Seizures: No Hx Asthma: Yes Hx HIV: No Additional medical history: bronchitis - Surgical History Past Surgical History?: Yes - Social History Smoking Status: Never Smoker Substance Use Type: Marijuana - Medications Home Medications: Home Medications Medication Instructions Recorded Confirmed Last Taken Type Acetaminophen/Codeine [Tylenol 1 tab PO DAILY 07/31/17 07/31/17 2 Days Ago History /Codeine # 3 tab] ~07/29/17 Ibuprofen [Motrin] 800 mg PO Q8HR PRN 07/31/17 07/31/17 07/31/17 History Nitrofurantoin Monohyd/M-Cryst 100 mg PO BID #14 capsule 08/01/17 Unknown Rx [Macrobid 100 mg Capsule] ALBUTEROL Inhaler(NF) [VENTOLIN 2 puff IH Q4H PRN #1 inha 10/04/18 Unknown Rx Inhaler(NF)] Azithromycin [Zithromax Z-HETAL] 250 mg PO DAILY #6 tab 10/04/18 Unknown Rx Benzonatate [Tessalon Perle] 100 mg PO TID PRN #30 capsule 10/04/18 Unknown Rx Ibuprofen [Ibuprofen 800] 800 mg PO TID PRN #30 tablet 10/04/18 Unknown Rx predniSONE [Deltasone] 40 mg PO QDAY 5 Days #10 tab 10/04/18 Unknown Rx Azithromycin [Zithromax] 500 mg PO QDAY #3 tablet 12/05/18 Unknown Rx Montelukast [Singulair] 10 mg PO QPM #14 tablet 12/05/18 Unknown Rx predniSONE [Deltasone] 50 mg PO QDAY #5 tab 12/05/18 Unknown Rx DOXYCYCLINE Hyclate [Vibramycin 100 mg PO Q12HR #20 capsule 06/13/19 Unknown Rx CAP] Ibuprofen [Motrin] 600 mg PO Q8H PRN #20 tablet 06/13/19 Unknown Rx Ondansetron [Zofran Odt] 4 mg PO Q6HR PRN #20 tab.rapdis 06/13/19 Unknown Rx methylPREDNISolone [Medrol 4MG 4 mg PO DAILY #21 tab.ds.pk 06/13/19 Unknown Rx DOSEPAK (21 tabs)] ALBUTEROL NEB's [Proventil 0.083% 3 ml INHALATION Q6H PRN #75 ml 12/15/19 Unknown Rx NEBS] Albuterol Sulfate [Proventil Hfa] 1 - 2 puff IH Q6H PRN #1 hfa.aer.ad 12/15/19 Unknown Rx Benzonatate [Tessalon Perles] 100 mg PO Q8HR #30 capsule 12/15/19 Unknown Rx Prednisone [predniSONE 10 mg 10 mg PO .TAPER #21 tab.ds.pk 12/15/19 Unknown Rx (6-Day Pack, 21 Tabs)] ED Physical Exam - General Limitations: No Limitations General appearance: alert, in no apparent distress - Head Head exam: Present: atraumatic, normocephalic, normal inspection - Eye Eye exam: Present: normal appearance, PERRL, EOMI Pupils: Present: normal accommodation - ENT ENT exam: Present: normal exam, normal orophraynx, mucous membranes moist, TM's normal bilaterally, normal external ear exam - Neck Neck exam: Present: normal inspection, full ROM - Respiratory Respiratory exam: Present: wheezes (Diffuse coarse wheezes throughout). Absent: respiratory distress, rales, rhonchi, chest wall tenderness, accessory muscle use, decreased breath sounds - Cardiovascular Cardiovascular Exam: Present: normal rhythm, tachycardia, normal heart sounds. Absent: systolic murmur, diastolic murmur, rubs, gallop - GI/Abdominal GI/Abdominal exam: Present: soft, normal bowel sounds. Absent: tenderness, guarding, hyperactive bowel sounds, hypoactive bowel sounds - Extremities Exam Extremities exam: Present: normal inspection, full ROM, normal capillary refill - Back Exam Back exam: Present: normal inspection, full ROM. Absent: tenderness, CVA tenderness (R), CVA tenderness (L), muscle spasm, paraspinal tenderness, vertebral tenderness - Neurological Exam Neurological exam: Present: alert, oriented X3, CN II-XII intact, normal gait, reflexes normal - Psychiatric Psychiatric exam: Present: normal affect, normal mood - Skin Skin exam: Present: warm, dry, intact, normal color. Absent: rash ED Course Vital Signs 12/14/19 12/14/19 12/15/19 23:13 23:49 01:55 Temperature 98.4 F 97.8 F Pulse Rate 103 H 103 H Pulse Rate [ 105 H Bilateral] Respiratory 18 15 Rate Respiratory 22 Rate [Bilateral ] Blood Pressure 130/88 Blood Pressure 132/81 [Left] O2 Sat by Pulse 96 99 Oximetry ED Medical Decision Making - Radiology Data Radiology results: report reviewed, image reviewed Findings [facility], [place] [address] [place] [address] XRay Report Signed Patient: BERNABE WEINSTEIN MR#: [id number] : 1990 Acct:[id number] Age/Sex: 28 / F ADM Date: 12/14/19 Loc: ED Attending Dr: Ordering Physician: FIDEL ALVARADO Date of Service: 12/14/19 Procedure(s): XR chest 1V ap Accession Number(s): [id number] cc: FIDEL ALVARADO Fluoro Time In Minutes: CHEST 1 VIEW 12/14/2019 10:56 PM INDICATION / CLINICAL INFORMATION: dyspnea, asthma attack. COMPARISON: Chest x-ray 06/13/2019 FINDINGS: SUPPORT DEVICES: None. HEART / MEDIASTINUM: No significant abnormality. LUNGS / PLEURA: No significant pulmonary or pleural abnormality. No pneumothorax. ADDITIONAL FINDINGS: No significant additional findings. IMPRESSION: 1. No acute findings. Signer Name: Jefferson Hankins MD Signed: 12/15/2019 12:11 AM Workstation Name: [id number] Transcribed By: TL Dictated By: Jefferson Hankins MD Electronically Authenticated By: Jefferson Hankins MD Signed Date/Time: 12/15/1910 DD/ TD/TT: - Medical Decision Making This is a 28-year-old -Polish female with a history of asthma and bronchitis who presents to the ED with complaint of acute onset persistent shortness of breath, persistent dry cough, and wheezing for the last 2 hours. Patient states that the symptoms have been persistent intermittently for the last 3 days and that she has been using her albuterol inhaler and nebulizers at home. Patient states that the last time she used her nebulizer was about 8 hours ago. Patient states that she ran out of her albuterol inhaler prior to arrival in the ED. In the ED, patient is alert and oriented x3 and is not in distress. Patient was treated in the ED with Solu-Medrol 125 mg IV, albuterol and DuoNeb over 1 hour. Chest x-ray shows no acute cardiopulmonary abnormalities or pneumonitis. On reevaluation, patient's wheezing resolved with treatment. Patient was discharged home on medications including refill on her albuterol inhaler and nebulizers and cough medications and swelling steroid Dosepak. Patient was advised to follow-up with her primary care physician in 3 to 5 days for reevaluation. Patient was advised return to the ED immediately if symptoms get worse. - Differential Diagnosis Pneumonia; asthma; bronchitis; URI; Allergic rhinitis Critical care attestation.: If time is entered above; I have spent that time in minutes in the direct care of this critically ill patient, excluding procedure time. ED Disposition Clinical Impression: Acute bronchitis with asthma with acute exacerbation, Shortness of breath Disposition: TO HOME OR SELFCARE Is pt being admited?: No Does the pt Need Aspirin: No Condition: Stable Instructions: Asthma (ED), Acute Bronchitis (ED), Dyspnea (ED) Additional Instructions: Chest x-ray shows no acute cardiopulmonary abnormalities or pneumonitis. Therefore take medication as advised, drink plenty of fluids and follow-up with your primary care physician in 3 to 5 days for reevaluation. Return to the ED immediately if symptoms get worse. Prescriptions: Prednisone [predniSONE 10 mg (6-Day Pack, 21 Tabs)] 10 mg PO .TAPER #21 tab.ds.pk ALBUTEROL NEB's [Proventil 0.083% NEBS] 3 ml INHALATION Q6H PRN #75 ml PRN Reason: Wheezing Albuterol Sulfate [Proventil Hfa] 1 - 2 puff IH Q6H PRN #1 hfa.aer.ad PRN Reason: Wheezing Benzonatate [Tessalon Perles] 100 mg PO Q8HR #30 capsule Referrals: [facility] [Provider Group] - 3-5 Days [facility] [Outside] - 3-5 Days Time of Disposition: :26 Print Language: TELUGU
[2019-12-15 02:13] VITALS: BP 132/81
== END 2019-12-15 02:00 | disposition home or self-care (01) ==
LOC: ED 22:59
DX: J44.1 Chronic obstructive pulmonary disease with (acute) exacerbation (principal)
CPT/HCPCS: 71045; 94644; 96374; 99283; J2930

== ENCOUNTER 2020-05-09 19:51 | Emergency (ER) | payer SELFPAY ==
[2020-05-09] MEDS ORDERED: IPRATROPIUM/ALBUTEROL SULFATE 3 ML AMPUL.NEB IH ONE ×2 (21:15)
[2020-05-09] MEDS ORDERED: IPRATROPIUM 0.02% NEBU 2.5 ML IH ONE ×3 (21:20→22:56)
[2020-05-09] MEDS ORDERED: ALBUTEROL 2.5 MG/3 ML NEBU IH ONE ×3 (21:20→22:56)
--- NOTE | 2020-05-09 21:34 | XRay Report ---
CHEST 1 VIEW INDICATION / CLINICAL INFORMATION: cough and wheezing. COMPARISON: Chest radiograph 12/14/2019 FINDINGS: SUPPORT DEVICES: None. HEART / MEDIASTINUM: No significant abnormality. LUNGS / PLEURA: No significant pulmonary or pleural abnormality. No pneumothorax. ADDITIONAL FINDINGS: No significant additional findings. IMPRESSION: 1. No acute findings. Signer Name: Marisol Braxton MD Signed: 05/09/2020 9:30 PM Workstation Name: [id number]
[2020-05-09] MEDS ORDERED: dexAMETHasone 20 MG/5 ML VIAL IV ONE (21:39)
--- NOTE | 2020-05-09 21:56 | Emergency Department Report ---
ED Asthma HPI - General Chief Complaint: Adult Asthma Stated Complaint: TARAS/COUGH Time Seen by Provider: 05/09/20 21:22 Source: patient Mode of arrival: Ambulatory Limitations: No Limitations - History of Present Illness Initial Comments: Chief complaint: "I think I am having a flareup." HPI: This is a 29-year-old female with history of asthma since childhood who presents with wheezing shortness of breath for 1 day. Unknown trigger. She has intact she requires albuterol daily. However she visits to the ED approximately every 6 months. She does not have a PCP. She has never been hospitalized for asthma. She has nonproductive cough. She has shortness of breath and wheezing. She denies chest pain, fever, abdominal pain. She lives with 3 children. No sick contacts. MD Complaint: "asthma attack", shortness of breath, wheezing -: Gradual, days(s) (1) Asthma History: childhood onset, history of frequent attac, history of prior ED visit Severity: moderate Context: none known Associated Symptoms: dry cough Treatments Prior to Arrival: inhaled bronchodilator - Related Data Home Medications Medication Instructions Recorded Confirmed Last Taken Acetaminophen/Codeine [Tylenol 1 tab PO DAILY 07/31/17 07/31/17 2 Days Ago /Codeine # 3 tab] ~07/29/17 Ibuprofen [Motrin] 800 mg PO Q8HR PRN 07/31/17 07/31/17 07/31/17 Previous Rx's Medication Instructions Recorded Last Taken Type Nitrofurantoin Monohyd/M-Cryst 100 mg PO BID #14 capsule 08/01/17 Unknown Rx [Macrobid 100 mg Capsule] ALBUTEROL Inhaler(NF) [VENTOLIN 2 puff IH Q4H PRN #1 inha 10/04/18 Unknown Rx Inhaler(NF)] Azithromycin [Zithromax Z-HETAL] 250 mg PO DAILY #6 tab 10/04/18 Unknown Rx Benzonatate [Tessalon Perle] 100 mg PO TID PRN #30 capsule 10/04/18 Unknown Rx Ibuprofen [Ibuprofen 800] 800 mg PO TID PRN #30 tablet 10/04/18 Unknown Rx predniSONE [Deltasone] 40 mg PO QDAY 5 Days #10 tab 10/04/18 Unknown Rx Azithromycin [Zithromax] 500 mg PO QDAY #3 tablet 06/05/19 Unknown Rx Montelukast [Singulair] 10 mg PO QPM #14 tablet 12/05/18 Unknown Rx predniSONE [Deltasone] 50 mg PO QDAY #5 tab 12/05/18 Unknown Rx DOXYCYCLINE Hyclate [Vibramycin 100 mg PO Q12HR #20 capsule 06/13/19 Unknown Rx CAP] Ibuprofen [Motrin] 600 mg PO Q8H PRN #20 tablet 06/13/19 Unknown Rx Ondansetron [Zofran Odt] 4 mg PO Q6HR PRN #20 tab.rapdis 06/13/19 Unknown Rx methylPREDNISolone [Medrol 4MG 4 mg PO DAILY #21 tab.ds.pk 06/13/19 Unknown Rx DOSEPAK (21 tabs)] ALBUTEROL NEB's [Proventil 0.083% 3 ml INHALATION Q6H PRN #75 ml 12/15/19 Unknown Rx NEBS] Albuterol Sulfate [Proventil Hfa] 1 - 2 puff IH Q6H PRN #1 hfa.aer.ad 12/15/19 Unknown Rx Benzonatate [Tessalon Perles] 100 mg PO Q8HR #30 capsule 12/15/19 Unknown Rx Prednisone [predniSONE 10 mg 10 mg PO .TAPER #21 tab.ds.pk 12/15/19 Unknown Rx (6-Day Pack, 21 Tabs)] ALBUTEROL NEB's [Proventil 0.083% 2.5 mg IH TID PRN #1 box 05/09/20 Unknown Rx NEBS] Albuterol Mdi (or & Nicu Only) 2 puff IH QID PRN #8.5 gram 05/09/20 Unknown Rx [ProAir HFA Inhaler] predniSONE [Deltasone] 3 tab PO QDAY 3 Days #9 tab 05/09/20 Unknown Rx Allergies Allergy/AdvReac Type Severity Reaction Status Date / Time No Known Allergies Allergy Verified 06/13/19 17:18 ED Review of Systems ROS: Stated complaint: TARAS/COUGH Other details as noted in HPI Comment: All other systems reviewed and negative Constitutional: denies: fever, malaise Respiratory: cough, shortness of breath, wheezing Cardiovascular: denies: chest pain Gastrointestinal: denies: abdominal pain Neurological: denies: headache ED Past Medical Hx - Past Medical History Previous Medical History?: Yes Hx Hypertension: No Hx Diabetes: No Hx Deep Vein Thrombosis: No Hx Renal Disease: No Hx Sickle Cell Disease: No Hx Seizures: No Hx Psychiatric Treatment: Yes (Anxiety) Hx Asthma: Yes Hx HIV: No Additional medical history: bronchitis - Surgical History Past Surgical History?: No - Social History Smoking Status: Never Smoker Substance Use Type: Marijuana - Medications Home Medications: Home Medications Medication Instructions Recorded Confirmed Last Taken Type Acetaminophen/Codeine [Tylenol 1 tab PO DAILY 07/31/17 07/31/17 2 Days Ago History /Codeine # 3 tab] ~07/29/17 Ibuprofen [Motrin] 800 mg PO Q8HR PRN 07/31/17 07/31/17 07/31/17 History Nitrofurantoin Monohyd/M-Cryst 100 mg PO BID #14 capsule 08/01/17 Unknown Rx [Macrobid 100 mg Capsule] ALBUTEROL Inhaler(NF) [VENTOLIN 2 puff IH Q4H PRN #1 inha 10/04/18 Unknown Rx Inhaler(NF)] Azithromycin [Zithromax Z-HETAL] 250 mg PO DAILY #6 tab 10/04/18 Unknown Rx Benzonatate [Tessalon Perle] 100 mg PO TID PRN #30 capsule 10/04/18 Unknown Rx Ibuprofen [Ibuprofen 800] 800 mg PO TID PRN #30 tablet 10/04/18 Unknown Rx predniSONE [Deltasone] 40 mg PO QDAY 5 Days #10 tab 10/04/18 Unknown Rx Azithromycin [Zithromax] 500 mg PO QDAY #3 tablet 12/05/18 Unknown Rx Montelukast [Singulair] 10 mg PO QPM #14 tablet 12/05/18 Unknown Rx predniSONE [Deltasone] 50 mg PO QDAY #5 tab 12/05/18 Unknown Rx DOXYCYCLINE Hyclate [Vibramycin 100 mg PO Q12HR #20 capsule 06/13/19 Unknown Rx CAP] Ibuprofen [Motrin] 600 mg PO Q8H PRN #20 tablet 06/13/19 Unknown Rx Ondansetron [Zofran Odt] 4 mg PO Q6HR PRN #20 tab.rapdis 06/13/19 Unknown Rx methylPREDNISolone [Medrol 4MG 4 mg PO DAILY #21 tab.ds.pk 06/13/19 Unknown Rx DOSEPAK (21 tabs)] ALBUTEROL NEB's [Proventil 0.083% 3 ml INHALATION Q6H PRN #75 ml 12/15/19 Unknown Rx NEBS] Albuterol Sulfate [Proventil Hfa] 1 - 2 puff IH Q6H PRN #1 hfa.aer.ad 12/15/19 Unknown Rx Benzonatate [Tessalon Perles] 100 mg PO Q8HR #30 capsule 12/15/19 Unknown Rx Prednisone [predniSONE 10 mg 10 mg PO .TAPER #21 tab.ds.pk 12/15/19 Unknown Rx (6-Day Pack, 21 Tabs)] ALBUTEROL NEB's [Proventil 0.083% 2.5 mg IH TID PRN #1 box 05/09/20 Unknown Rx NEBS] Albuterol Mdi (or & Nicu Only) 2 puff IH QID PRN #8.5 gram 05/09/20 Unknown Rx [ProAir HFA Inhaler] predniSONE [Deltasone] 3 tab PO QDAY 3 Days #9 tab 05/09/20 Unknown Rx ED Physical Exam - General Limitations: No Limitations General appearance: alert, in no apparent distress, other (Speaking full word sentences without difficulty) - Head Head exam: Present: atraumatic, normocephalic - Eye Eye exam: Present: normal appearance - ENT ENT exam: Present: mucous membranes moist - Neck Neck exam: Present: normal inspection, full ROM - Respiratory Respiratory exam: Present: wheezes, prolonged expiratory, other (Inspiratory expiratory wheezing). Absent: respiratory distress, rales, rhonchi, chest wall tenderness, accessory muscle use - Cardiovascular Cardiovascular Exam: Present: normal rhythm, tachycardia, normal heart sounds. Absent: systolic murmur, diastolic murmur, rubs, gallop - GI/Abdominal GI/Abdominal exam: Present: soft, normal bowel sounds. Absent: distended, tenderness, guarding, rebound - Extremities Exam Extremities exam: Present: normal inspection - Neurological Exam Neurological exam: Present: alert, oriented X3 - Psychiatric Psychiatric exam: Present: normal affect, normal mood - Skin Skin exam: Present: warm, dry, intact, normal color. Absent: rash ED Course Vital Signs 05/09/20 05/09/20 05/09/20 20:41 21:22 21:25 Temperature 99.3 F Pulse Rate 112 H Pulse Rate [ 111 H 115 H Bilateral Throughout] Respiratory 18 Rate Respiratory 20 20 Rate [Bilateral Throughout] Blood Pressure 116/78 O2 Sat by Pulse 97 Oximetry ED Medical Decision Making - Medical Decision Making Acute asthma exacerbation: Treated with albuterol, Atrovent, IV Decadron. Patient received 2 continuous nebulizer treatments with improvement of symptoms. She was prescribed prednisone burst therapy as well as albuterol nebulizer therapy and albuterol MDI. Critical care attestation.: If time is entered above; I have spent that time in minutes in the direct care of this critically ill patient, excluding procedure time. ED Disposition Clinical Impression: Acute asthma exacerbation Disposition: DC- TO HOME OR SELFCARE Is pt being admited?: No Does the pt Need Aspirin: No Condition: Stable Instructions: Asthma Attack Prescriptions: predniSONE [Deltasone] 3 tab PO QDAY 3 Days #9 tab Albuterol Mdi (or & Nicu Only) [ProAir HFA Inhaler] 2 puff IH QID PRN #8.5 gram PRN Reason: Shortness Of Breath ALBUTEROL NEB's [Proventil 0.083% NEBS] 2.5 mg IH TID PRN #1 box PRN Reason: Wheezing Referrals: BRET EVERETT MD [Staff Physician] - 3-5 Days
[2020-05-10 00:05] VITALS: BP 119/80
== END 2020-05-10 | disposition home or self-care (01) ==
LOC: ED 19:51
DX: J45.901 Unspecified asthma with (acute) exacerbation (principal); F41.9 Anxiety disorder, unspecified; F12.90 Cannabis use, unspecified, uncomplicated; Z79.899 Other long term (current) drug therapy
CPT/HCPCS: 71045; 94640; 96374; 99283; J1100; 94644

== ENCOUNTER 2020-06-25 21:48 | Observation (INO) | payer OTHER ==
[2020-06-25] MEDS ORDERED: ALBUTEROL 2.5 MG/3 ML NEBU IH ONE (21:53)
[2020-06-25] MEDS ORDERED: IPRATROPIUM 0.02% NEBU 2.5 ML IH ONE (21:53)
--- NOTE | 2020-06-25 21:57 | Emergency Department Report ---
ED Shortness of Breath HPI - General Stated Complaint: TARAS Time Seen by Provider: 06/25/20 21:50 - History of Present Illness Initial Comments: 29-year-old female, history of asthma, presents to ED with difficulty breathing. Patient states symptoms began yesterday and gradually worsened today. Believe her wheezing was triggered by cold weather. No relief with neb treatments at home. EMS was called. Report normal O2 sats on room air. Patient was given albuterol 5 mg nebs, magnesium sulfate 2 g IV, Solu-Medrol 125 mg IV. Patient was placed on CPAP and transported to the ED. patient denies any recent fever. She reports cough associated with her wheezing. She denies any loss of smell or taste. Patient states she had a Covid test last month and it was negative. MD Complaint: shortness of breath -: days(s) (2) Severity: severe Consistency: constant Improves With: nothing Worsens With: exertion Known History Of: asthma Associated Symptoms: denies other symptoms Treatments Prior to Arrival: bronchodilator, NIPPV - Related Data Home Oxygen Therapy: No Home Medications Medication Instructions Recorded Confirmed Last Taken Acetaminophen/Codeine [Tylenol 1 tab PO DAILY 07/31/17 07/31/17 2 Days Ago /Codeine # 3 tab] ~07/29/17 Ibuprofen [Motrin] 800 mg PO Q8HR PRN 07/31/17 07/31/17 07/31/17 Previous Rx's Medication Instructions Recorded Last Taken Type Nitrofurantoin Monohyd/M-Cryst 100 mg PO BID #14 capsule 08/01/17 Unknown Rx [Macrobid 100 mg Capsule] ALBUTEROL Inhaler(NF) [VENTOLIN 2 puff IH Q4H PRN #1 inha 10/04/18 Unknown Rx Inhaler(NF)] Azithromycin [Zithromax Z-HETAL] 250 mg PO DAILY #6 tab 10/04/18 Unknown Rx Benzonatate [Tessalon Perle] 100 mg PO TID PRN #30 capsule 10/04/18 Unknown Rx Ibuprofen [Ibuprofen 800] 800 mg PO TID PRN #30 tablet 10/04/18 Unknown Rx predniSONE [Deltasone] 40 mg PO QDAY 5 Days #10 tab 10/04/18 Unknown Rx Azithromycin [Zithromax] 500 mg PO QDAY #3 tablet 12/05/18 Unknown Rx Montelukast [Singulair] 10 mg PO QPM #14 tablet 12/05/18 Unknown Rx predniSONE [Deltasone] 50 mg PO QDAY #5 tab 12/05/18 Unknown Rx DOXYCYCLINE Hyclate [Vibramycin 100 mg PO Q12HR #20 capsule 06/13/19 Unknown Rx CAP] Ibuprofen [Motrin] 600 mg PO Q8H PRN #20 tablet 06/13/19 Unknown Rx Ondansetron [Zofran Odt] 4 mg PO Q6HR PRN #20 tab.rapdis 06/13/19 Unknown Rx methylPREDNISolone [Medrol 4MG 4 mg PO DAILY #21 tab.ds.pk 06/13/19 Unknown Rx DOSEPAK (21 tabs)] ALBUTEROL NEB's [Proventil 0.083% 3 ml INHALATION Q6H PRN #75 ml 12/15/19 Unknown Rx NEBS] Albuterol Sulfate [Proventil Hfa] 1 - 2 puff IH Q6H PRN #1 hfa.aer.ad 12/15/19 Unknown Rx Benzonatate [Tessalon Perles] 100 mg PO Q8HR #30 capsule 12/15/19 Unknown Rx Prednisone [predniSONE 10 mg 10 mg PO .TAPER #21 tab.ds.pk 12/15/19 Unknown Rx (6-Day Pack, 21 Tabs)] ALBUTEROL NEB's [Proventil 0.083% 2.5 mg IH TID PRN #1 box 05/09/20 Unknown Rx NEBS] Albuterol Mdi (or & Nicu Only) 2 puff IH QID PRN #8.5 gram 05/09/20 Unknown Rx [ProAir HFA Inhaler] predniSONE [Deltasone] 3 tab PO QDAY 3 Days #9 tab 05/09/20 Unknown Rx Allergies Allergy/AdvReac Type Severity Reaction Status Date / Time No Known Allergies Allergy Verified 06/13/19 17:18 ED Review of Systems ROS: Stated complaint: TARAS Other details as noted in HPI Comment: All other systems reviewed and negative Constitutional: denies: chills, fever Respiratory: cough, wheezing ED Past Medical Hx - Past Medical History Hx Hypertension: No Hx Diabetes: No Hx Deep Vein Thrombosis: No Hx Renal Disease: No Hx Sickle Cell Disease: No Hx Seizures: No Hx Psychiatric Treatment: Yes (Anxiety) Hx Asthma: Yes Hx HIV: No Additional medical history: bronchitis - Social History Smoking Status: Never Smoker Substance Use Type: Marijuana - Medications Home Medications: Home Medications Medication Instructions Recorded Confirmed Last Taken Type Acetaminophen/Codeine [Tylenol 1 tab PO DAILY 07/31/17 07/31/17 2 Days Ago History /Codeine # 3 tab] ~07/29/17 Ibuprofen [Motrin] 800 mg PO Q8HR PRN 07/31/17 07/31/17 07/31/17 History Nitrofurantoin Monohyd/M-Cryst 100 mg PO BID #14 capsule 08/01/17 Unknown Rx [Macrobid 100 mg Capsule] ALBUTEROL Inhaler(NF) [VENTOLIN 2 puff IH Q4H PRN #1 inha 10/04/18 Unknown Rx Inhaler(NF)] Azithromycin [Zithromax Z-HETAL] 250 mg PO DAILY #6 tab 10/04/18 Unknown Rx Benzonatate [Tessalon Perle] 100 mg PO TID PRN #30 capsule 10/04/18 Unknown Rx Ibuprofen [Ibuprofen 800] 800 mg PO TID PRN #30 tablet 10/04/18 Unknown Rx predniSONE [Deltasone] 40 mg PO QDAY 5 Days #10 tab 10/04/18 Unknown Rx Azithromycin [Zithromax] 500 mg PO QDAY #3 tablet 12/05/18 Unknown Rx Montelukast [Singulair] 10 mg PO QPM #14 tablet 12/05/18 Unknown Rx predniSONE [Deltasone] 50 mg PO QDAY #5 tab 12/05/18 Unknown Rx DOXYCYCLINE Hyclate [Vibramycin 100 mg PO Q12HR #20 capsule 06/13/19 Unknown Rx CAP] Ibuprofen [Motrin] 600 mg PO Q8H PRN #20 tablet 06/13/19 Unknown Rx Ondansetron [Zofran Odt] 4 mg PO Q6HR PRN #20 tab.rapdis 06/13/19 Unknown Rx methylPREDNISolone [Medrol 4MG 4 mg PO DAILY #21 tab.ds.pk 06/13/19 Unknown Rx DOSEPAK (21 tabs)] ALBUTEROL NEB's [Proventil 0.083% 3 ml INHALATION Q6H PRN #75 ml 12/15/19 Unknown Rx NEBS] Albuterol Sulfate [Proventil Hfa] 1 - 2 puff IH Q6H PRN #1 hfa.aer.ad 12/15/19 Unknown Rx Benzonatate [Tessalon Perles] 100 mg PO Q8HR #30 capsule 12/15/19 Unknown Rx Prednisone [predniSONE 10 mg 10 mg PO .TAPER #21 tab.ds.pk 12/15/19 Unknown Rx (6-Day Pack, 21 Tabs)] ALBUTEROL NEB's [Proventil 0.083% 2.5 mg IH TID PRN #1 box 05/09/20 Unknown Rx NEBS] Albuterol Mdi (or & Nicu Only) 2 puff IH QID PRN #8.5 gram 05/09/20 Unknown Rx [ProAir HFA Inhaler] predniSONE [Deltasone] 3 tab PO QDAY 3 Days #9 tab 05/09/20 Unknown Rx ED Physical Exam - General General appearance: alert - Head Head exam: Present: atraumatic, normocephalic - Eye Eye exam: Present: normal appearance - ENT ENT exam: Present: mucous membranes moist - Neck Neck exam: Present: normal inspection - Respiratory Respiratory exam: Present: respiratory distress, wheezes, decreased breath sounds - GI/Abdominal GI/Abdominal exam: Present: soft. Absent: distended, tenderness - Extremities Exam Extremities exam: Present: normal inspection. Absent: pedal edema, calf tenderness - Neurological Exam Neurological exam: Present: alert, oriented X3 - Psychiatric Psychiatric exam: Present: normal affect, normal mood - Skin Skin exam: Present: warm, dry, intact, normal color. Absent: rash ED Course Vital Signs 06/25/20 06/25/20 06/25/20 21:48 22:00 22:01 Temperature 98.5 F Pulse Rate 131 H Pulse Rate [ Bilateral Throughout] Respiratory 24 Rate Respiratory Rate [Bilateral Throughout] Blood Pressure 118/69 O2 Sat by Pulse 97 98 98 Oximetry 06/25/20 06/25/20 06/26/20 22:51 23:00 00:00 Temperature Pulse Rate 132 H 129 H Pulse Rate [ 138 H Bilateral Throughout] Respiratory 22 22 Rate Respiratory 20 Rate [Bilateral Throughout] Blood Pressure 114/75 110/65 O2 Sat by Pulse 98 94 Oximetry ED Medical Decision Making - Lab Data Result diagrams: 06/25/20 22:33 06/25/20 22:33 - Radiology Data Radiology results: report reviewed, image reviewed - Medical Decision Making 29-year-old female with history of asthma presents to ED with acute asthma exacerbation, initially requiring BiPAP. Patient received neb treatment, mag sulfate, Solu-Medrol from EMS. Patient received additional albuterol and Atrovent nebulizer here in the ED. Chest x-ray is negative. Labs are unremarkable. Patient given a trial off of BiPAP as she initially wanted to go home. However with ambulation, patient became dyspneic, with O2 sats dropping to 93%. Patient has decided to stay. She will be admitted for observation by Dr Hart, hospitalist, for further management. - Differential Diagnosis asthma, pneumonia, pulm edema Critical Care Time: Yes Critical care time in (mins) excluding proc time.: 35 Critical care attestation.: If time is entered above; I have spent that time in minutes in the direct care of this critically ill patient, excluding procedure time. Critical Care Time: 35 min ED Disposition Clinical Impression: Acute asthma exacerbation, Acute respiratory failure Disposition: 09 OP ADMIT IP TO THIS HOSP Is pt being admited?: Yes Condition: Stable Referrals: PRIMARY CARE, [Primary Care Provider] - 3-5 Days Time of Disposition: 00:42
[2020-06-25 22:37] LABS: ABG Base Excess -2.1 mmol/L (-2.0-3.0); ABG Methemoglobin 0.5 % (0.0-1.5); ABG Oxygen Saturation 97.5 % (95.0-99.0); ABG PCO2 40.8 mm Hg; ABG PH 7.37 pH Units (7.350-7.450); ABG PO2 100.2 mm Hg (80.0-90.0)
[2020-06-25 22:59] LABS: Basophils % (Auto) 0.4 % (0.0-1.8); Eosinophils # (Auto) 0.6 K/mm3 (0.0-0.4); Eosinophils % (Auto) 4.8 % (0.0-4.3); Hematocrit 39.5 % (30.3-42.9); Hemoglobin 12.4 gm/dl (10.1-14.3); Lymphocytes # (Auto) 1.6 K/mm3 (1.2-5.4); Lymphocytes % (Auto) 12.8 % (13.4-35.0); Mean Corpuscular HGB Conc 31 % (30-34); Mean Corpuscular Volume 77 fl (79-97); Monocytes # (Auto) 0.4 K/mm3 (0.0-0.8); Monocytes % (Auto) 3.1 % (0.0-7.3); Platelet Count 337 K/mm3 (140-440); Red Blood Count 5.13 M/mm3 (3.65-5.03); Red Cell Distribution Width 16.8 % (13.2-15.2)
[2020-06-25 23:28] LABS: Blood Urea Nitrogen 8 mg/dL (7-17); Calcium 8.9 mg/dL (8.4-10.2); Hemolysis Index 1
[2020-06-25 23:30] LABS: BUN/Creatinine Ratio 11
--- NOTE | 2020-06-26 00:03 | XRay Report ---
CHEST 1 VIEW INDICATION: sob, asthma. COMPARISON: 05/09/2020 FINDINGS: SUPPORT DEVICES: None. HEART: Within normal limits. LUNGS/PLEURA: No acute air space or interstitial disease. ADDITIONAL FINDINGS: None. IMPRESSION: 1. No acute findings. Signer Name: Aniceto Enriquez MD Signed: 06/25/2020 11:59 PM Workstation Name: [id number]
[2020-06-26] MEDS ORDERED: IBUPROFEN 800 MG TAB PO ONE (00:13)
[2020-06-26] MEDS ORDERED: ACETAMINOPHEN 325 MG TAB PO PRN (02:24)
[2020-06-26] MEDS ORDERED: ONDANSETRON 4 MG/2 ML INJ IV PRN (02:24)
[2020-06-26] MEDS ORDERED: MAGNESIUM HYDROXIDE (MOM) ORAL LIQD UDC PO PRN (02:24)
[2020-06-26] MEDS ORDERED: MORPHINE 2 MG/1 ML INJ IV PRN (02:24)
--- NOTE | 2020-06-26 02:39 | History and Physical Report ---
History of Present Illness Date of examination: 06/26/20 Date of admission: 06/26/20 00:43 Chief complaint: Shortness of Breath History of present illness: 29-year-old female with known history of asthma presenting to the emergency room today complaining of difficulty breathing and shortness of breath. Symptoms were said to have started yesterday but got worse sometime this afternoon. She has used and nebulizing treatments at home without significant improvement. She evaluated by EMS and was given albuterol nebulizing treatment, IV magnesium sulfate, and IV Solu-Medrol. She was then brought into the emergency room on CPAP. Patient denies any fever or chills, denies any chest pain, denies any nausea vomiting, no diarrhea and no abdominal pain. Denies any hematuria or dysuria. She has had some cough which is nonproductive. She denies any sick contacts and no recent travel and denies any contact with anyone with COVID-19. Patient indicates that her asthma exacerbation may have been secondary to the cold weather. She denies any exposure to any toxic fumes or chemicals. Work-up in the emergency room today including chest x-ray was unremarkable. Patient therefore admitted for asthma exacerbation. Past History Past Medical History: other (Asthma) Past Surgical History: denies: No surgical history Social history: other (Marijuana use) Family history: no significant family history Medications and Allergies Allergies Allergy/AdvReac Type Severity Reaction Status Date / Time No Known Allergies Allergy Verified 06/13/19 17:18 Home Medications Medication Instructions Recorded Confirmed Last Taken Type Acetaminophen/Codeine [Tylenol 1 tab PO DAILY 07/31/17 07/31/17 2 Days Ago History /Codeine # 3 tab] ~07/29/17 Ibuprofen [Motrin] 800 mg PO Q8HR PRN 07/31/17 07/31/17 07/31/17 History Nitrofurantoin Monohyd/M-Cryst 100 mg PO BID #14 capsule 08/01/17 Unknown Rx [Macrobid 100 mg Capsule] ALBUTEROL Inhaler(NF) [VENTOLIN 2 puff IH Q4H PRN #1 inha 10/04/18 Unknown Rx Inhaler(NF)] Azithromycin [Zithromax Z-HETAL] 250 mg PO DAILY #6 tab 10/04/18 Unknown Rx Benzonatate [Tessalon Perle] 100 mg PO TID PRN #30 capsule 10/04/18 Unknown Rx Ibuprofen [Ibuprofen 800] 800 mg PO TID PRN #30 tablet 10/04/18 Unknown Rx predniSONE [Deltasone] 40 mg PO QDAY 5 Days #10 tab 10/04/18 Unknown Rx Azithromycin [Zithromax] 500 mg PO QDAY #3 tablet 12/05/18 Unknown Rx Montelukast [Singulair] 10 mg PO QPM #14 tablet 12/05/18 Unknown Rx predniSONE [Deltasone] 50 mg PO QDAY #5 tab 12/05/18 Unknown Rx DOXYCYCLINE Hyclate [Vibramycin 100 mg PO Q12HR #20 capsule 06/13/19 Unknown Rx CAP] Ibuprofen [Motrin] 600 mg PO Q8H PRN #20 tablet 06/13/19 Unknown Rx Ondansetron [Zofran Odt] 4 mg PO Q6HR PRN #20 tab.rapdis 06/13/19 Unknown Rx methylPREDNISolone [Medrol 4MG 4 mg PO DAILY #21 tab.ds.pk 06/13/19 Unknown Rx DOSEPAK (21 tabs)] ALBUTEROL NEB's [Proventil 0.083% 3 ml INHALATION Q6H PRN #75 ml 12/15/19 Unknown Rx NEBS] Albuterol Sulfate [Proventil Hfa] 1 - 2 puff IH Q6H PRN #1 hfa.aer.ad 12/15/19 Unknown Rx Benzonatate [Tessalon Perles] 100 mg PO Q8HR #30 capsule 12/15/19 Unknown Rx Prednisone [predniSONE 10 mg 10 mg PO .TAPER #21 tab.ds.pk 12/15/19 Unknown Rx (6-Day Pack, 21 Tabs)] ALBUTEROL NEB's [Proventil 0.083% 2.5 mg IH TID PRN #1 box 05/09/20 Unknown Rx NEBS] Albuterol Mdi (or & Nicu Only) 2 puff IH QID PRN #8.5 gram 05/09/20 Unknown Rx [ProAir HFA Inhaler] predniSONE [Deltasone] 3 tab PO QDAY 3 Days #9 tab 05/09/20 Unknown Rx Active Meds: Active Medications Acetaminophen (Acetaminophen 325 Mg Tab) 650 mg PO Q4H PRN PRN Reason: Pain MILD(1-3)/Fever >100.5/SEGURA Albuterol/Ipratropium (Ipratropium/Albuterol Sulfate 3 Ml Ampul.Neb) 1 ampul IH Q6HRT JARAD Enoxaparin Sodium (Enoxaparin 40 Mg/0.4 Ml Inj) 40 mg SUB-Q QDAY@2200 JARAD; Protocol Magnesium Hydroxide (Magnesium Hydroxide (Mom) Oral Liqd Udc) 30 ml PO Q4H PRN PRN Reason: Constipation Methylprednisolone Sodium Succinate (Methylprednisolone Sod Succinate 40 Mg/1 Ml Inj) 40 mg IV Q8HR JARAD Morphine Sulfate (Morphine 2 Mg/1 Ml Inj) 2 mg IV Q4H PRN PRN Reason: Pain, Moderate (4-6) Ondansetron HCl (Ondansetron 4 Mg/2 Ml Inj) 4 mg IV Q8H PRN PRN Reason: Nausea And Vomiting Sodium Chloride (Sodium Chloride 0.9% 10 Ml Flush Syringe) 10 ml IV BID JARAD Sodium Chloride (Sodium Chloride 0.9% 10 Ml Flush Syringe) 10 ml IV PRN PRN PRN Reason: LINE FLUSH Review of Systems Constitutional: no fever, no chills Ears, nose, mouth and throat: no nasal congestion, no sore throat Cardiovascular: no chest pain, no palpitations Respiratory: shortness of breath, wheezing, no cough Gastrointestinal: no abdominal pain, no nausea, no vomiting, no diarrhea Genitourinary Female: no pelvic pain, no dysuria, no hematuria Musculoskeletal: no neck pain, no low back pain Integumentary: no rash, no pruritis Neurological: no headaches, no confusion Psychiatric: no anxiety, no depression Exam - Constitutional Vitals: Temp Pulse Resp BP Pulse Ox 98.5 F 110 H 22 110/65 97 06/25/20 21:48 06/26/20 01:00 06/26/20 00:00 06/26/20 01:01 06/26/20 01:01 General appearance: Present: no acute distress, well-nourished - EENT Eyes: Present: PERRL, EOM intact. Absent: scleral icterus ENT: hearing intact, clear oral mucosa, dentition normal - Neck Neck: Present: supple, normal ROM - Respiratory Respiratory effort: normal Respiratory: bilateral: wheezing - Cardiovascular Rhythm: regular Heart Sounds: Present: S1 & S2. Absent: gallop, systolic murmur, diastolic murmur, rub - Extremities Extremities: no ischemia, pulses intact, pulses symmetrical, No edema, normal temperature, normal color, Full ROM Peripheral Pulses: within normal limits - Abdominal General gastrointestinal: Present: soft, non-tender, non-distended, normal bowel sounds. Absent: mass - Integumentary Integumentary: Present: clear, warm, dry. Absent: rash - Musculoskeletal Musculoskeletal: strength equal bilaterally - Psychiatric Psychiatric: appropriate mood/affect, intact judgment & insight, memory intact, cooperative - Neurologic Neurologic: CNII-XII intact, no focal deficits, moves all extremities Results - Labs CBC & Chem 7: 06/25/20 22:33 06/25/20 22:33 Labs: Abnormal lab results 06/25/20 06/25/20 06/25/20 Range/Units 22:30 22:33 22:33 WBC 12.8 H (4.5-11.0) K/mm3 RBC 5.13 H (3.65-5.03) M/mm3 MCV 77 L (79-97) fl MCH 24 L (28-32) pg RDW 16.8 H (13.2-15.2) % Lymph % (Auto) 12.8 L (13.4-35.0) % Eos % (Auto) 4.8 H (0.0-4.3) % Eos # (Auto) 0.6 H (0.0-0.4) K/mm3 Seg Neutrophils % 78.9 H (40.0-70.0) % Seg Neutrophils # 10.1 H (1.8-7.7) K/mm3 ABG pO2 100.2 H (80.0-90.0) mm Hg ABG Base Excess -2.1 L (-2.0-3.0) mmol/L Glucose 173 H (65-100) mg/dL Assessment and Plan - Patient Problems (1) Acute asthma exacerbation Current Visit: Yes Status: Acute Plan to address problem: Patient placed on nebulizing treatments and IV steroids. We will keep O2 saturation greater or equal to 94%. (2) DVT prophylaxis Current Visit: Yes Status: Acute Plan to address problem: Patient placed on subcutaneous Lovenox. (3) Full code status Current Visit: Yes Status: Acute Plan to address problem: Patient is a full code.
[2020-06-26] MEDS ORDERED: methylPREDNISolone Sod Succinate 40 MG/1 ML INJ IV SCH (06:00)
[2020-06-26] MEDS ORDERED: IPRATROPIUM/ALBUTEROL SULFATE 3 ML AMPUL.NEB IH SCH (08:00)
[2020-06-26 08:34] VITALS: BP 105/64
--- NOTE | 2020-06-26 11:24 | Discharge Summary ---
Providers - Providers Date of Admission: 06/26/20 00:43 Attending physician: NASIR TRAN MD Primary care physician: AVICULTURIST Hospitalization Reason for admission: Asthma exacerbation Condition: Stable Hospital course: 29-year-old female with known history of asthma presenting to the emergency room today complaining of difficulty breathing and shortness of breath. Symptoms were said to have started yesterday but got worse sometime this afternoon. She has used and nebulizing treatments at home without significant improvement. She evaluated by EMS and was given albuterol nebulizing treatment, IV magnesium sulfate, and IV Solu-Medrol. She was then brought into the emergency room on CPAP. Patient denies any fever or chills, denies any chest pain, denies any nausea vomiting, no diarrhea and no abdominal pain. Denies any hematuria or dysuria. She has had some cough which is nonproductive. She denies any sick contacts and no recent travel and denies any contact with anyone with COVID-19. Patient indicates that her asthma exacerbation may have been secondary to the cold weather. She denies any exposure to any toxic fumes or chemicals. Work-up in the emergency room today including chest x-ray was unremarkable. Patient therefore admitted for asthma exacerbation. Since admission patient has significantly improved with good airflow very minimal wheezing ambulating without difficulty or hypoxia. She wants to be discharged and follow-up outpatient. She did run out of some of her medications. At last hospitalization did not feel other medications which have educated on importance of and she verbalized understanding. I also referred her to use good Rx for cost savings on the medications. Acute asthma exacerbation Leukocytosis likely reactive Morbid obesity weight loss counseling provided for 15 minutes. Disposition: - TO HOME OR SELFCARE Time spent for discharge: 35 minutes Core Measure Documentation - Palliative Care Palliative Care/ Comfort Measures: Not Applicable - Core Measures Any of the following diagnoses?: none Exam - Physical Exam Narrative exam: VITAL SIGNS: Reviewed. GENERAL: The patient appears normally developed, otherwise morbidly obese vital signs as documented. HEAD: No signs of head trauma. EYES: Pupils are equal. Extraocular motions intact. EARS: Hearing grossly intact. MOUTH: Oropharynx is normal. NECK: No adenopathy, no JVD. CHEST: Chest with clear breath sounds bilaterally. No wheezes, rales, or rhonchi. CARDIAC: Regular rate and rhythm. S1 and S2, without murmurs, gallops, or rubs. VASCULAR: No Edema. Peripheral pulses normal and equal in all extremities. ABDOMEN: Soft, non tender and non distended. No rebound or guarding, and no masses palpated. Bowel Sounds normal. MUSCULOSKELETAL: Good range of motion of all major joints. Extremities without clubbing, cyanosis or edema. NEUROLOGIC EXAM: Alert and oriented x 3 No focal sensory or strength deficits. Speech normal. Follows commands. PSYCHIATRIC: Mood normal. SKIN: detail exam as documented in skin assessment - Constitutional Vitals: Temp Pulse Resp BP Pulse Ox 98.1 F 118 H 20 105/64 95 06/26/20 08:34 06/26/20 08:34 06/26/20 08:34 06/26/20 08:34 06/26/20 08:34 Plan Activity: advance as tolerated, fall precautions Diet: low fat Special Instructions: record daily weights, record daily BP diary Follow up with: PRIMARY CARE, [Primary Care Provider] - 3-5 Days CHARLY CARPIO MD [Staff Physician] - 7 Days Prescriptions: Peak Flow Meter [[place] Choice Peak Flow Meter] 1 each MC BID #1 each predniSONE [Deltasone] 40 mg PO QDAY 5 Days #10 tab Ipratropium/Albuterol Sulfate [DUONEB *Not for PRN Use*] 1 ampul IH Q6HRT #120 ampul.neb Montelukast [Singulair] 10 mg PO QPM #14 tablet Azithromycin [Zithromax Z-HETAL] 250 mg PO DAILY #6 tab
[2020-06-26] MEDS ORDERED: ENOXAPARIN 40 MG/0.4 ML INJ SUB-Q SCH (22:00)
== END 2020-06-26 13:12 | disposition home or self-care (01) ==
LOC: ED 21:48 → 4A 06-26 00:43
PROVIDERS: ADMIT Internal Medicine Geriatric Medicine; ATTEND Internal Medicine
DX: J96.00 Acute respiratory failure, unspecified whether with hypoxia or hypercapnia (principal); J45.901 Unspecified asthma with (acute) exacerbation; D72.829 Elevated white blood cell count, unspecified; E66.01 Morbid (severe) obesity due to excess calories; F41.9 Anxiety disorder, unspecified
CPT/HCPCS: 36415; 71045; 80048; 82803; 84703; 85025; 94644; 96374; 99291; G0378; J2920

== ENCOUNTER 2021-11-20 13:31 | Emergency (ER) | payer OTHER ==
[2021-11-20] MEDS ORDERED: IPRATROPIUM/ALBUTEROL SULFATE 3 ML AMPUL.NEB IH ONE ×2 (16:28→19:49)
[2021-11-20] MEDS ORDERED: predniSONE 50 MG TAB PO STA (21:25)
--- NOTE | 2021-11-20 21:41 | Emergency Department Report ---
ED Asthma HPI - General Chief Complaint: Adult Asthma Stated Complaint: ASTHMA ATTACK Time Seen by Provider: 11/20/21 21:25 Source: patient Mode of arrival: Ambulatory Limitations: No Limitations - History of Present Illness Initial Comments: 30-year-old female with history of asthma [facility] department complaining of having asthma flareup due to what she believes is the allergies. Been having mucus production but no fever, no hemoptysis no hematemesis medic easier, no diarrhea no constipation, no chest pain or palpitations MD Complaint: "asthma attack", wheezing -: Gradual Severity: mild Context: ran out of meds, allergen exposure Associated Symptoms: none - Related Data Current Asthma Therapy: none Home Medications Medication Instructions Recorded Confirmed Last Taken Acetaminophen/Codeine [Tylenol 1 tab PO DAILY 07/31/17 07/31/17 2 Days Ago /Codeine # 3 tab] ~07/29/17 Previous Rx's Medication Instructions Recorded Last Taken Type ALBUTEROL Inhaler(NF) [VENTOLIN 2 puff IH Q4H PRN #1 inha 10/04/18 Unknown Rx Inhaler(NF)] predniSONE [Deltasone] 50 mg PO QDAY #5 tab 12/05/18 Unknown Rx Benzonatate [Tessalon Perles] 100 mg PO Q8HR #30 capsule 12/15/19 Unknown Rx Prednisone [predniSONE 10 mg 10 mg PO .TAPER #21 tab.ds.pk 12/15/19 Unknown Rx (6-Day Pack, 21 Tabs)] Albuterol Mdi (or & Nicu Only) 2 puff IH QID PRN #8.5 gram 05/09/20 Unknown Rx [ProAir HFA Inhaler] Azithromycin [Zithromax Z-HETAL] 250 mg PO DAILY #6 tab 06/26/20 Unknown Rx Ipratropium/Albuterol Sulfate 1 ampul IH Q6HRT #120 ampul.neb 06/26/20 Unknown Rx [DUONEB *Not for PRN Use*] Montelukast [Singulair] 10 mg PO QPM #14 tablet 06/26/20 Unknown Rx Peak Flow Meter [Powell Choice 1 each MC BID #1 each 06/26/20 Unknown Rx Peak Flow Meter] predniSONE [Deltasone] 40 mg PO QDAY 5 Days #10 tab 06/26/20 Unknown Rx Albuterol Mdi (or & Nicu Only) 2 puff IH QID PRN #1 inhalation 11/20/21 Unknown Rx [ProAir HFA Inhaler] Montelukast [Singulair] 10 mg PO QPM #14 tablet 11/20/21 Unknown Rx predniSONE [Deltasone] 50 mg PO QDAY #5 tab 11/20/21 Unknown Rx Allergies Allergy/AdvReac Type Severity Reaction Status Date / Time No Known Allergies Allergy Verified 06/13/19 17:18 ED Review of Systems ROS: Stated complaint: ASTHMA ATTACK Other details as noted in HPI Comment: All other systems reviewed and negative ED Past Medical Hx - Past Medical History Previous Medical History?: Yes Hx Hypertension: No Hx Congestive Heart Failure: No Hx Diabetes: No Hx Deep Vein Thrombosis: No Hx Renal Disease: No Hx Sickle Cell Disease: No Hx Seizures: No Hx Psychiatric Treatment: Yes (Anxiety) Hx Asthma: Yes Hx COPD: No Hx HIV: No Additional medical history: bronchitis - Surgical History Past Surgical History?: No - Social History Smoking Status: Never Smoker - Medications Home Medications: Home Medications Medication Instructions Recorded Confirmed Last Taken Type Acetaminophen/Codeine [Tylenol 1 tab PO DAILY 07/31/17 07/31/17 2 Days Ago History /Codeine # 3 tab] ~07/29/17 ALBUTEROL Inhaler(NF) [VENTOLIN 2 puff IH Q4H PRN #1 inha 10/04/18 Unknown Rx Inhaler(NF)] predniSONE [Deltasone] 50 mg PO QDAY #5 tab 12/05/18 Unknown Rx Benzonatate [Tessalon Perles] 100 mg PO Q8HR #30 capsule 12/15/19 Unknown Rx Prednisone [predniSONE 10 mg 10 mg PO .TAPER #21 tab.ds.pk 12/15/19 Unknown Rx (6-Day Pack, 21 Tabs)] Albuterol Mdi (or & Nicu Only) 2 puff IH QID PRN #8.5 gram 05/09/20 Unknown Rx [ProAir HFA Inhaler] Azithromycin [Zithromax Z-HETAL] 250 mg PO DAILY #6 tab 06/26/20 Unknown Rx Ipratropium/Albuterol Sulfate 1 ampul IH Q6HRT #120 ampul.neb 06/26/20 Unknown Rx [DUONEB *Not for PRN Use*] Montelukast [Singulair] 10 mg PO QPM #14 tablet 06/26/20 Unknown Rx Peak Flow Meter [Powell Choice 1 each MC BID #1 each 06/26/20 Unknown Rx Peak Flow Meter] predniSONE [Deltasone] 40 mg PO QDAY 5 Days #10 tab 06/26/20 Unknown Rx Albuterol Mdi (or & Nicu Only) 2 puff IH QID PRN #1 inhalation 11/20/21 Unknown Rx [ProAir HFA Inhaler] Montelukast [Singulair] 10 mg PO QPM #14 tablet 11/20/21 Unknown Rx predniSONE [Deltasone] 50 mg PO QDAY #5 tab 11/20/21 Unknown Rx ED Physical Exam - General Limitations: No Limitations General appearance: alert, in no apparent distress - Head Head exam: Present: atraumatic, normocephalic - Eye Eye exam: Present: normal appearance - ENT ENT exam: Present: mucous membranes moist - Neck Neck exam: Present: normal inspection - Respiratory Respiratory exam: Present: normal lung sounds bilaterally, wheezes. Absent: respiratory distress, rales, rhonchi, chest wall tenderness, accessory muscle use, decreased breath sounds - Cardiovascular Cardiovascular Exam: Present: regular rate, normal rhythm. Absent: systolic murmur, diastolic murmur, rubs, gallop - GI/Abdominal GI/Abdominal exam: Present: soft, normal bowel sounds - Extremities Exam Extremities exam: Present: normal inspection - Back Exam Back exam: Present: normal inspection - Neurological Exam Neurological exam: Present: alert, oriented X3 - Psychiatric Psychiatric exam: Present: normal affect, normal mood - Skin Skin exam: Present: warm, dry, intact, normal color. Absent: rash ED Course Vital Signs 11/20/21 11/20/21 11/20/21 14:16 16:31 20:09 Temperature 98.7 F Pulse Rate 102 H 114 H Pulse Rate [ 112 H Anterior Bilateral Throughout] Respiratory 20 18 Rate Respiratory 20 Rate [Anterior Bilateral Throughout] Blood Pressure 116/80 O2 Sat by Pulse 99 95 Oximetry ED Medical Decision Making - Radiology Data Radiology results: report reviewed Chest x-ray clear - Medical Decision Making 30-year-old female no history of asthma reports having frequent flareups off and on recently due to her allergies. Utilizes her home MDI but states that she does not have her prednisone or her Singulair. Usually she can call her primary care provider but has not attempted to do so to get her medications presents emerged department today seeking refills of medications No altered mental status, saddle respirations, belly breathing or other signs of impending ventilatory failure. No intubations or recent admissions to the hospital for asthma. Unlikely pneumonia, CHF, COPD, GERD Workup Review include a chest x-ray which was normal she also received steroids and albuterol Therapies: Prednisone 50 mg PO. Albuterol nebulizer Reassessment: Patient improved with albuterol and ipratropium in less than 3 hours. Disposition: Discharge home with return precautions. Advised to follow up with primary care physician within next 24-48 hours. Aside from this acute exacerbation patient has been well controlled on baseline home regimen. Rx short steroid course, albuterol, Singulair, Critical care attestation.: If time is entered above; I have spent that time in minutes in the direct care of this critically ill patient, excluding procedure time. ED Disposition Clinical Impression: Acute asthma exacerbation Disposition: HOME / SELF CARE / HOMELESS Is pt being admited?: No Does the pt Need Aspirin: No Condition: Stable Instructions: Asthma, Adult, Peak Flow Meter, Bronchospasm, Adult, How to Use a Metered Dose Inhaler, How to Use a Nebulizer, Adult, Asthma Attack, Cough, Adult Prescriptions: predniSONE [Deltasone] 50 mg PO QDAY #5 tab Albuterol Mdi (or & Nicu Only) [ProAir HFA Inhaler] 2 puff IH QID PRN #1 inhalation PRN Reason: Shortness Of Breath Montelukast [Singulair] 10 mg PO QPM #14 tablet Referrals: BRET EVERETT MD [Primary Care Provider] - 3-5 Days
--- NOTE | 2021-11-20 22:07 | XRay Report ---
CHEST 2 VIEWS INDICATION / CLINICAL INFORMATION: Shortness of breath and wheezing. COMPARISON: 06/25/20. FINDINGS: SUPPORT DEVICES: None. HEART / MEDIASTINUM: The heart size and pulmonary vasculature are normal. LUNGS / PLEURA: No significant pulmonary or pleural abnormality. No pneumothorax. ADDITIONAL FINDINGS: No significant additional findings. IMPRESSION: No acute abnormality or significant change. Signer Name: Mingo Mcfarland MD Signed: 11/20/2021 10:02 PM Workstation Name: [id number]
[2021-11-20 22:56] VITALS: BP 112/72
== END 2021-11-20 22:55 | disposition home or self-care (01) ==
LOC: ED 13:31
DX: J45.901 Unspecified asthma with (acute) exacerbation (principal); F41.9 Anxiety disorder, unspecified
CPT/HCPCS: 71046; 94640; 99283; J7512; 94644